=== PATIENT | male | born 1970 | race Asian ===

== ENCOUNTER 2016-07-17 10:06 | Outpatient (CLI) | payer OTHER | END 2016-07-17 23:59 | DX: Z00.00 Encounter for general adult medical examination without abnormal findings (principal); Z71.89 Other specified counseling; M54.2 Cervicalgia ==

== ENCOUNTER 2016-12-23 14:26 | Outpatient (CLI) | payer OTHER ==
[2016-12-23 13:32] LABS: ALBUMIN/GLOBULIN RATIO 1.8 (1.0-2.2); BILIRUBIN,TOTAL 0.6 mg/dL (0.2-1.0); BUN - BLOOD UREA NITROGEN 20 mg/dL (6-20); CALCIUM 8.9 mg/dL (8.5-10.3); CARBON DIOXIDE - CO2 25 mmol/L (21-32); CHLORIDE 109 mmol/L (101-111); CHOL/HDL RATIO 3.7 (<5.0); CHOLESTEROL 144 mg/dL; GFR - MDRD 80 (>89); GLUCOSE 105 mg/dL (70-100); HDL CHOLESTEROL 39 mg/dL; LDL/HDL RATIO 1.4 (<3.6); POTASSIUM 3.7 mmol/L (3.5-5.0); SODIUM 139 mmol/L (135-145); TOTAL PROTEIN 7.2 g/dL (6.7-8.2); TRIGLYCERIDES 244 mg/dL; VLDL CHOLESTEROL 49 mg/dL
== END 2016-12-23 14:27 | disposition home or self-care (01) ==
LOC: LAB.WCP 14:26
PROVIDERS: ATTEND Physician Assistant Medical
DX: E78.5 Hyperlipidemia, unspecified (principal)
CPT/HCPCS: 36415; 80053; 80061

== ENCOUNTER 2017-01-26 08:23 | Outpatient (CLI) | payer OTHER ==
[2017-01-26 13:13] LABS: ALBUMIN/GLOBULIN RATIO 1.7 (1.0-2.2); BILIRUBIN,TOTAL 0.5 mg/dL (0.2-1.0); CALCIUM 9.3 mg/dL (8.5-10.3); POTASSIUM 3.9 mmol/L (3.5-5.0); TOTAL PROTEIN 7.3 g/dL (6.7-8.2)
== END 2017-01-26 08:24 | disposition home or self-care (01) ==
LOC: LAB.WCP 08:23
PROVIDERS: ATTEND Physician Assistant Medical
DX: R74.8 Abnormal levels of other serum enzymes (principal)
CPT/HCPCS: 36415; 80053

== ENCOUNTER 2017-04-02 08:00 | Outpatient (CLI) | payer OTHER ==
[2017-04-02 12:57] LABS: ALBUMIN 4.7 g/dL (3.2-5.5); ALBUMIN/GLOBULIN RATIO 1.5 (1.0-2.2); ALKALINE PHOSPHATASE 77 IU/L (42-121); ALT ALANINE AMINOTRANSFERASE 36 IU/L (10-60); AST ASPARTATE AMINOTRANSFERASE 23 IU/L (10-42); BILIRUBIN,TOTAL 0.7 mg/dL (0.2-1.0); BUN - BLOOD UREA NITROGEN 21 mg/dL (6-20); CALCIUM 9.3 mg/dL (8.5-10.3); CARBON DIOXIDE - CO2 27 mmol/L (21-32); CHLORIDE 105 mmol/L (101-111); CHOL/HDL RATIO 3.8 (<5.0); CHOLESTEROL 169 mg/dL; CREATININE 1.1 mg/dL (0.6-1.2); GFR - MDRD 71 (>89); GLUCOSE 91 mg/dL (70-100); HDL CHOLESTEROL 45 mg/dL; LDL CHOLESTEROL,CALCULATED 77 mg/dL; LDL/HDL RATIO 1.7 (<3.6); SODIUM 138 mmol/L (135-145); TOTAL PROTEIN 7.9 g/dL (6.7-8.2); VLDL CHOLESTEROL 47 mg/dL
== END 2017-04-02 08:01 ==
LOC: LAB.WCP 08:00
PROVIDERS: ATTEND Physician Assistant Medical
DX: E78.5 Hyperlipidemia, unspecified (principal)
CPT/HCPCS: 36415; 80053; 80061

== ENCOUNTER 2017-12-02 08:00 | Outpatient (CLI) | payer OTHER ==
[2017-12-02 12:59] LABS: BASOPHILS % (AUTO) 0.4 %; EOSINOPHILS # (AUTO) 0.1 10^3/uL (0.0-0.7); EOSINOPHILS % (AUTO) 2.8 %; HGB - HEMOGLOBIN 14.8 g/dL (14.0-18.0); LYMPHOCYTES # (AUTO) 1.8 10^3/uL (1.5-3.5); LYMPHOCYTES % (AUTO) 35.2 %; MEAN CORPUSCULAR HEMOGLOBIN 29.5 pg (27.0-31.0); MEAN CORPUSCULAR HGB CONC 34.2 g/dL (32.0-36.0); MEAN CORPUSCULAR VOLUME 86.2 fL (80.0-94.0); MEAN PLATELET VOLUME 7.7 fL (7.4-11.4); MONOCYTES # (AUTO) 0.4 10^3/uL (0.0-1.0); MONOCYTES % (AUTO) 8.1 %; NEUTROPHILS # (AUTO) 2.7 10^3/uL (1.5-6.6); NEUTROPHILS % (AUTO) 53.5 %; PLT - PLATELET COUNT 226 10^3/uL (130-450); RED BLOOD COUNT 5.01 10^6/uL (4.70-6.10); RED CELL DISTRIBUTION WIDTH 13.4 % (12.0-15.0)
[2017-12-02 14:03] LABS: ALBUMIN 4.5 g/dL (3.2-5.5); ALBUMIN/GLOBULIN RATIO 1.5 (1.0-2.2); ALKALINE PHOSPHATASE 84 IU/L (42-121); ALT ALANINE AMINOTRANSFERASE 66 IU/L (10-60); AST ASPARTATE AMINOTRANSFERASE 28 IU/L (10-42); BILIRUBIN,TOTAL 1.1 mg/dL (0.2-1.0); BUN - BLOOD UREA NITROGEN 18 mg/dL (6-20); CALCIUM 9.1 mg/dL (8.5-10.3); CARBON DIOXIDE - CO2 26 mmol/L (21-32); CHLORIDE 105 mmol/L (101-111); CHOL/HDL RATIO 7.5 (<5.0); CHOLESTEROL 294 mg/dL; CREATININE 0.9 mg/dL (0.6-1.2); GFR - MDRD 90 (>89); GLUCOSE 95 mg/dL (70-100); HDL CHOLESTEROL 39 mg/dL; SODIUM 139 mmol/L (135-145); TOTAL PROTEIN 7.5 g/dL (6.7-8.2)
[2017-12-02 15:24] LABS: LDL CHOLESTEROL,DIRECT 120 mg/dL; LDLD/HDL RATIO 3.1 (<3.6)
== END 2017-12-02 08:01 | disposition home or self-care (01) ==
LOC: LAB.WCP 08:00
PROVIDERS: ATTEND Physician Assistant Medical
DX: Z00.00 Encounter for general adult medical examination without abnormal findings (principal); E78.5 Hyperlipidemia, unspecified
CPT/HCPCS: 36415; 80053; 80061; 83721; 85025

== ENCOUNTER 2018-04-06 07:23 | Outpatient (CLI) | payer OTHER ==
[2018-04-06 12:34] LABS: BASOPHILS % (AUTO) 0.4 %; EOSINOPHILS # (AUTO) 0.2 10^3/uL (0.0-0.7); EOSINOPHILS % (AUTO) 3.4 %; HGB - HEMOGLOBIN 14.1 g/dL (14.0-18.0); LYMPHOCYTES # (AUTO) 1.6 10^3/uL (1.5-3.5); LYMPHOCYTES % (AUTO) 33.3 %; MEAN CORPUSCULAR HGB CONC 33.5 g/dL (32.0-36.0); MEAN CORPUSCULAR VOLUME 86.8 fL (80.0-94.0); MEAN PLATELET VOLUME 7.9 fL (7.4-11.4); MONOCYTES # (AUTO) 0.4 10^3/uL (0.0-1.0); MONOCYTES % (AUTO) 7.3 %; NEUTROPHILS # (AUTO) 2.7 10^3/uL (1.5-6.6); NEUTROPHILS % (AUTO) 55.6 %; PLT - PLATELET COUNT 259 10^3/uL (130-450); RED BLOOD COUNT 4.84 10^6/uL (4.70-6.10); RED CELL DISTRIBUTION WIDTH 13.5 % (12.0-15.0); WHITE BLOOD COUNT 4.8 x10^3/uL (4.8-10.8)
[2018-04-06 13:16] LABS: ALBUMIN 4.6 g/dL (3.2-5.5); ALBUMIN/GLOBULIN RATIO 1.8 (1.0-2.2); ALKALINE PHOSPHATASE 45 IU/L (42-121); ALT ALANINE AMINOTRANSFERASE 36 IU/L (10-60); AST ASPARTATE AMINOTRANSFERASE 25 IU/L (10-42); BILIRUBIN,TOTAL 0.6 mg/dL (0.2-1.0); BUN - BLOOD UREA NITROGEN 25 mg/dL (6-20); CALCIUM 9.2 mg/dL (8.5-10.3); CARBON DIOXIDE - CO2 24 mmol/L (21-32); CHLORIDE 109 mmol/L (101-111); CHOL/HDL RATIO 2.8 (<5.0); CHOLESTEROL 137 mg/dL; GFR - MDRD 79 (>89); GLUCOSE 93 mg/dL (70-100); HDL CHOLESTEROL 49 mg/dL; LDL CHOLESTEROL,CALCULATED 54 mg/dL; LDL/HDL RATIO 1.1 (<3.6); SODIUM 140 mmol/L (135-145); TOTAL PROTEIN 7.2 g/dL (6.7-8.2); VLDL CHOLESTEROL 34 mg/dL
== END 2018-04-06 23:59 | disposition home or self-care (01) ==
LOC: LAB.WCP 07:23
PROVIDERS: ATTEND Physician Assistant Medical
DX: E78.5 Hyperlipidemia, unspecified (principal); Z00.00 Encounter for general adult medical examination without abnormal findings
CPT/HCPCS: 36415; 80053; 80061; 83721; 84153; 84443; 85025

== ENCOUNTER 2018-08-23 07:23 | Outpatient (CLI) | payer OTHER ==
[2018-08-23 12:33] LABS: CHOL/HDL RATIO 6.6 (<5.0); CHOLESTEROL 251 mg/dL; HDL CHOLESTEROL 38 mg/dL
[2018-08-23 13:09] LABS: LDL CHOLESTEROL,DIRECT 84 mg/dL; LDLD/HDL RATIO 2.2 (<3.6)
== END 2018-08-23 07:24 | disposition home or self-care (01) ==
LOC: LAB.WCP 07:23
PROVIDERS: ATTEND Physician Assistant Medical
DX: E78.5 Hyperlipidemia, unspecified (principal)
CPT/HCPCS: 36415; 80061; 83721

== ENCOUNTER 2018-10-11 07:35 | Outpatient (CLI) | payer OTHER ==
[2018-10-11 13:19] LABS: ALBUMIN 4.9 g/dL (3.2-5.5); ALBUMIN/GLOBULIN RATIO 1.8 (1.0-2.2); ALKALINE PHOSPHATASE 46 IU/L (42-121); ALT ALANINE AMINOTRANSFERASE 30 IU/L (10-60); AST ASPARTATE AMINOTRANSFERASE 27 IU/L (10-42); BILIRUBIN,TOTAL 0.9 mg/dL (0.2-1.0); BUN - BLOOD UREA NITROGEN 16 mg/dL (6-20); CALCIUM 9.4 mg/dL (8.5-10.3); CARBON DIOXIDE - CO2 24 mmol/L (21-32); CHLORIDE 104 mmol/L (101-111); CHOL/HDL RATIO 2.9 (<5.0); CHOLESTEROL 115 mg/dL; CREATININE 0.9 mg/dL (0.6-1.2); GFR - MDRD 89 (>89); GLUCOSE 104 mg/dL (70-100); HDL CHOLESTEROL 40 mg/dL; LDL CHOLESTEROL,CALCULATED 40 mg/dL; SODIUM 141 mmol/L (135-145); TOTAL PROTEIN 7.7 g/dL (6.7-8.2); VLDL CHOLESTEROL 35 mg/dL
== END 2018-10-11 07:36 | disposition home or self-care (01) ==
LOC: LAB.WCP 07:35
PROVIDERS: ATTEND Physician Assistant Medical
DX: E78.5 Hyperlipidemia, unspecified (principal)
CPT/HCPCS: 36415; 80053; 80061; 83721

== ENCOUNTER 2019-01-12 07:00 | Outpatient (CLI) | payer OTHER ==
[2019-01-12 12:32] LABS: BASOPHILS # (AUTO) 0.1 10^3/uL (0.0-0.1); BASOPHILS % (AUTO) 1.2 %; EOSINOPHILS # (AUTO) 0.2 10^3/uL (0.0-0.7); EOSINOPHILS % (AUTO) 3.8 %; HGB - HEMOGLOBIN 13.6 g/dL (14.0-18.0); LYMPHOCYTES # (AUTO) 1.8 10^3/uL (1.5-3.5); MEAN CORPUSCULAR HEMOGLOBIN 28.2 pg (27.0-31.0); MEAN CORPUSCULAR HGB CONC 31.9 g/dL (32.0-36.0); MEAN CORPUSCULAR VOLUME 88.4 fL (80.0-94.0); MEAN PLATELET VOLUME 9.5 fL (7.4-11.4); MONOCYTES # (AUTO) 0.4 10^3/uL (0.0-1.0); MONOCYTES % (AUTO) 8.2 %; NEUTROPHILS # (AUTO) 2.6 10^3/uL (1.5-6.6); NEUTROPHILS % (AUTO) 51.4 %; PLT - PLATELET COUNT 361 10^3/uL (130-450); RED BLOOD COUNT 4.82 10^6/uL (4.70-6.10); RED CELL DISTRIBUTION WIDTH 12.2 % (12.0-15.0)
== END 2019-01-12 23:59 | disposition home or self-care (01) ==
LOC: LAB.WCP 07:00
PROVIDERS: ATTEND Nurse Practitioner Gerontology
DX: M10.9 Gout, unspecified (principal); L03.90 Cellulitis, unspecified
CPT/HCPCS: 36415; 84550; 85025

== ENCOUNTER 2019-05-09 07:23 | Outpatient (CLI) | payer OTHER ==
[2019-05-09 12:24] LABS: ALBUMIN 4.7 g/dL (3.2-5.5); ALBUMIN/GLOBULIN RATIO 1.6 (1.0-2.2); ALKALINE PHOSPHATASE 54 IU/L (42-121); ALT ALANINE AMINOTRANSFERASE 50 IU/L (10-60); AST ASPARTATE AMINOTRANSFERASE 30 IU/L (10-42); BILIRUBIN,TOTAL 0.7 mg/dL (0.2-1.0); BUN - BLOOD UREA NITROGEN 19 mg/dL (6-20); CALCIUM 9.2 mg/dL (8.5-10.3); CARBON DIOXIDE - CO2 25 mmol/L (21-32); CHLORIDE 107 mmol/L (101-111); CHOL/HDL RATIO 4.1 (<5.0); CHOLESTEROL 197 mg/dL; CREATININE 1.1 mg/dL (0.6-1.2); GFR - MDRD 71 (>89); GLUCOSE 99 mg/dL (70-100); HDL CHOLESTEROL 48 mg/dL; LDL CHOLESTEROL,CALCULATED 106 mg/dL; LDL/HDL RATIO 2.2 (<3.6); SODIUM 140 mmol/L (135-145); TOTAL PROTEIN 7.6 g/dL (6.7-8.2); VLDL CHOLESTEROL 43 mg/dL
== END 2019-05-09 07:24 | disposition home or self-care (01) ==
LOC: LAB.WCP 07:23
PROVIDERS: ATTEND Physician Assistant Medical
DX: E78.5 Hyperlipidemia, unspecified (principal); M10.9 Gout, unspecified; Z12.5 Encounter for screening for malignant neoplasm of prostate
CPT/HCPCS: 36415; 80053; 80061; 83721; 84153; 84443

== ENCOUNTER 2019-07-29 15:24 | Outpatient (CLI) | payer OTHER | END 2019-07-29 15:25 | disposition home or self-care (01) | LOC: LAB 15:24 | PROVIDERS: ATTEND Surgery | DX: Z01.812 Encounter for preprocedural laboratory examination (principal); K60.3 Anal fistula | CPT/HCPCS: 81599 ==

== ENCOUNTER 2019-08-01 08:00 | Outpatient (CLI) | payer OTHER ==
[2019-08-01 15:39] LABS: CHOL/HDL RATIO 11.8 (<5.0); CHOLESTEROL 329 mg/dL; HDL CHOLESTEROL 28 mg/dL
[2019-08-01 16:10] LABS: LDL CHOLESTEROL,DIRECT 56 mg/dL
== END 2019-08-01 23:59 | disposition home or self-care (01) ==
LOC: LAB.WCP 08:00
PROVIDERS: ATTEND Physician Assistant Medical
DX: E78.5 Hyperlipidemia, unspecified (principal)
CPT/HCPCS: 36415; 80061; 83721

== ENCOUNTER 2019-08-02 08:10 | Day surgery (SDC) | payer OTHER ==
[~2019-08-02 08:10] MED LIST: LIDOCAINE 1%-EPI 1:100000 20 ML MDV ONE; LIDOCAINE OINTMENT 5% 35.44 GM TUBE ONE
[2019-08-02] MEDS ORDERED: fentaNYL 100 MCG/2 ML VIAL IVP ONE (08:11)
[2019-08-02] MEDS ORDERED: MIDAZOLAM 2 MG/2 ML VIAL IVP ONE (08:11)
[2019-08-02] MEDS ORDERED: KETAMINE 500 MG/10 ML VIAL IVP ONE (08:11)
[2019-08-02] MEDS ORDERED: PROPOFOL 200 MG/20 ML VIAL IVP ONE (08:11)
[2019-08-02] MEDS ORDERED: METHYLENE BLUE 0.5% 50 MG/10 ML AMPULE ONE (08:13)
[2019-08-02] MEDS ORDERED: metroNIDAZOLE 500 MG/100 ML 500 MG/100 ML BAG ONE (08:20)
[2019-08-02] MEDS ORDERED: LACTATED RINGERS 1,000 ML IV ONE (08:25)
--- NOTE | 2019-08-02 08:52 | ANESTHESIA ---
Pre-Anesthesia VS, & Labs - Diagnosis anal fistula - Procedure EUA fistulotomy Vital Signs: Temp Pulse Resp BP Pulse Ox 36.4 C L 87 16 141/96 H 100 08/02/19 08:09 08/02/19 08:09 08/02/19 08:09 08/02/19 08:09 08/02/19 08:09 Height 5 ft 2 in Weight (kg) 74 kg - NPO >8 hours Home Medications and Allergies Home Medications: Ambulatory Orders Cyclobenzaprine [Flexeril] 10 mg PO DAILY 08/01/19 Cyclobenzaprine [Flexeril] 10 mg PO DAILY 08/01/19 Allergies/Adverse Reactions: Allergies Allergy/AdvReac Type Severity Reaction Status Date / Time No Known Drug Allergies Allergy Verified 08/01/19 09:50 Anes History & Medical History - Anesthetic History Anesthesia Complications: reports: No previous complications Family history of Anesthesia Complications: Denies Family history of Malignant Hyperthermia: Denies - Medical History Cardiovascular: reports: High cholesterol Pulmonary: reports: None Gastrointestinal: reports: None, Other (hepatitis A "20 years ago") Urinary: reports: None Neuro: reports: None Musculoskeletal: reports: None, Other (right ankle discomfort" started a few days ago) Endocrine/Autoimmune: reports: None Blood Disorders: reports: None Skin: reports: None Smoking Status: Never smoker Psychosocial: reports: No issues indicated - Surgical History General: Colonoscopy, Other Exam General: Alert, Oriented x3, Cooperative, No acute distress Dental: WNL Mouth Openin Fingerbreadth Neck Mobility: Normal Mallampati classification: II Thyromental Distance: 4-6 cm Respiratory: Lungs clear, Normal breath sounds, No respiratory distress, No accessory muscle use Cardiovascular: Regular rate, Normal S1, Normal S2, No murmurs Abdomen: Normal bowel sounds, Soft, No tenderness, No hepatospenomegaly, No masses Extremities: No clubbing, No cyanosis, No edema, Normal pulses, No tenderness/swelling Neurological: Normal gait, Normal speech, Strength at 5/5 X4 ext, Normal tone, Sensation intact, Cranial nerves 3-12 NL, Reflexes 2+ Mental/Cognitive Status: Alert/Oriented X3, Normal for patient Cognitive Status: Within normal limits Plan Anesthesia Type: General Consent for Procedure(s) Verified and Reviewed: Yes Code Status: Attempt Resuscitation ASA classification: 1-Healthy patient Is this case an emergency?: No
[2019-08-02] MEDS ORDERED: BUPIVACAINE 0.25% PF 30 ML VIAL ONE (09:48)
[2019-08-02] MEDS ORDERED: BUPIVACAINE 0.25% PF 30 ML VIAL SUBQ ONE ×2 (09:51)
[2019-08-02] MEDS ORDERED: LIDOCAINE 1%-EPI 1:100000 20 ML MDV SUBQ ONE ×2 (09:51)
[2019-08-02] MEDS ORDERED: METHYLENE BLUE 0.5% 50 MG/10 ML AMPULE IR ONE (09:52)
[2019-08-02] MEDS ORDERED: ACETAMINOPHEN 325 MG TABLET PO PRN (10:12)
[2019-08-02] MEDS ORDERED: ONDANSETRON 4 MG/2 ML VIAL IVP PRN (10:12)
[2019-08-02] MEDS ORDERED: IBUPROFEN 600 MG TABLET PO PRN (10:12)
[2019-08-02] MEDS ORDERED: oxyCODONE 5 MG TABLET PO PRN (10:12)
[2019-08-02 10:36] VITALS: BP 119/85
--- NOTE | 2019-08-02 11:20 | OPERATIVE REPORT ---
DATE OF SERVICE: 08/02/2019 Physician: Alex Tate MD PREOPERATIVE DIAGNOSIS: Perianal fistula, likely superficial. POSTOPERATIVE DIAGNOSIS: Perianal fistula, superficial. PROCEDURE PERFORMED: Examination under anesthesia and fistulotomy. ANESTHESIA: Monitored anesthesia care, IV sedation, local anesthesia. COMPLICATIONS: None. ESTIMATED BLOOD LOSS: None. DRAINS: None. FINDINGS: A superficial perianal fistula 5 o'clock position. May have initially started as a fissur e. INDICATIONS FOR PROCEDURE: Patient is a healthy 49-year-old gentleman who developed perianal pain, s welling a few months ago. He has improved; however, it continues to have periodic drainage. On phys ical examination, he had the appearance of a superficial fissure at 5 o'clock. Examination under ane sthesia, possible fistulotomy was recommended. Risks discussed, alternatives were discussed. All qu estions answered and consent obtained. PROCEDURE: Patient was properly identified, brought to the operating room and placed in supine posit ion. Monitored anesthesia care was given. He was repositioned in [facility]. He was prepp ed and draped in a sterile fashion and given preoperative antibiotics. The fistula tract was injecte d with methylene blue. Again, the tract was at 5 o'clock position and was very superficial, possibly starting initially with a fissure that later developed into an abscess. Local anesthetic was given. A large lacrimal probe was then placed through the fistula tract. The fistula tract was then opene d. The tract was opened down to musculature; however, it again did not course through the muscle. C hronic granulation tissue was cauterized. Hemostasis was assured. Tolerated the procedure well, was awakened and brought to recovery in good condition. TD: 08/02/2019 10:47
== END 2019-08-02 08:11 | disposition home or self-care (01) ==
LOC: SDS 08:10
PROVIDERS: ATTEND Surgery
DX: K61.0 Anal abscess (principal)
CPT/HCPCS: 46270; J7120

== ENCOUNTER 2019-11-10 07:24 | Outpatient (CLI) | payer OTHER ==
[2019-11-10 12:20] LABS: ALBUMIN 4.6 g/dL (3.2-5.5); ALBUMIN/GLOBULIN RATIO 1.6 (1.0-2.2); ALKALINE PHOSPHATASE 97 IU/L (42-121); ALT ALANINE AMINOTRANSFERASE 113 IU/L (10-60); AST ASPARTATE AMINOTRANSFERASE 38 IU/L (10-42); BILIRUBIN,TOTAL 1.1 mg/dL (0.2-1.0); BUN - BLOOD UREA NITROGEN 15 mg/dL (6-20); CALCIUM 9.2 mg/dL (8.5-10.3); CARBON DIOXIDE - CO2 25 mmol/L (21-32); CHLORIDE 106 mmol/L (101-111); CHOL/HDL RATIO 2.5 (<5.0); CHOLESTEROL 123 mg/dL; CREATININE 0.9 mg/dL (0.6-1.2); GLUCOSE 96 mg/dL (70-100); HDL CHOLESTEROL 49 mg/dL; LDL CHOLESTEROL,CALCULATED 37 mg/dL; LDL/HDL RATIO 0.8 (<3.6); SODIUM 139 mmol/L (135-145); TOTAL PROTEIN 7.5 g/dL (6.7-8.2); VLDL CHOLESTEROL 37 mg/dL
== END 2019-11-10 23:59 | disposition home or self-care (01) ==
LOC: LAB.WCP 07:24
PROVIDERS: ATTEND Physician Assistant Medical
DX: E78.5 Hyperlipidemia, unspecified (principal)
CPT/HCPCS: 36415; 80053; 80061; 83721

== ENCOUNTER 2020-01-13 09:24 | Outpatient (CLI) | payer OTHER ==
--- NOTE | 2020-01-13 10:15 | XRAY Report ---
PROCEDURE: Foot 3 View LT INDICATIONS: PLANTAR FASCITIS TECHNIQUE: 3 views of the foot were acquired. COMPARISON: None. FINDINGS: Bones: No acute fractures or dislocations. No suspicious bony lesions. A small posterior calcaneal spur is present. No plantar calcaneal spur is seen. Soft tissues: No suspicious soft tissue calcification is seen. IMPRESSION: No acute osseous abnormality. If symptoms persist with conservative management, further evaluation wi th CT or MRI may be obtained. Reviewed by: Bernardo Norman MD on 01/13/2020 10:14 AM PDT Approved by: Bernardo Norman MD on 01/13/2020 10:14 AM PDT Station ID: [id number]
== END 2020-01-13 09:25 | disposition home or self-care (01) ==
LOC: DI 09:24
PROVIDERS: ATTEND Family Medicine
DX: M72.2 Plantar fascial fibromatosis (principal)

== ENCOUNTER 2020-02-07 08:00 | Outpatient (CLI) | payer OTHER ==
[2020-02-07 12:26] LABS: ALBUMIN 4.4 g/dL (3.2-5.5); ALBUMIN/GLOBULIN RATIO 1.4 (1.0-2.2); ALKALINE PHOSPHATASE 88 IU/L (42-121); ALT ALANINE AMINOTRANSFERASE 56 IU/L (10-60); AST ASPARTATE AMINOTRANSFERASE 31 IU/L (10-42); BUN - BLOOD UREA NITROGEN 17 mg/dL (6-20); CALCIUM 9.3 mg/dL (8.5-10.3); CARBON DIOXIDE - CO2 27 mmol/L (21-32); CHLORIDE 105 mmol/L (101-111); CHOL/HDL RATIO 2.4 (<5.0); CHOLESTEROL 119 mg/dL; GLUCOSE 103 mg/dL (70-100); HDL CHOLESTEROL 49 mg/dL; LDL CHOLESTEROL,CALCULATED 42 mg/dL; LDL/HDL RATIO 0.9 (<3.6); SODIUM 140 mmol/L (135-145); TOTAL PROTEIN 7.5 g/dL (6.7-8.2); VLDL CHOLESTEROL 28 mg/dL
== END 2020-02-07 23:59 | disposition home or self-care (01) ==
LOC: LAB.WCP 08:00
PROVIDERS: ATTEND Physician Assistant Medical
DX: E78.5 Hyperlipidemia, unspecified (principal); R74.8 Abnormal levels of other serum enzymes
CPT/HCPCS: 36415; 80053; 80061; 83721

== ENCOUNTER 2020-08-15 08:00 | Outpatient (CLI) | payer OTHER ==
[2020-08-15 12:21] LABS: BASOPHILS % (AUTO) 0.5 %; EOSINOPHILS # (AUTO) 0.2 10^3/uL (0.0-0.7); EOSINOPHILS % (AUTO) 2.5 %; HCT - HEMATOCRIT 43.7 % (42.0-52.0); HGB - HEMOGLOBIN 14.3 g/dL (14.0-18.0); LYMPHOCYTES # (AUTO) 1.8 10^3/uL (1.5-3.5); LYMPHOCYTES % (AUTO) 29.6 %; MEAN CORPUSCULAR HEMOGLOBIN 29.1 pg (27.0-31.0); MEAN CORPUSCULAR HGB CONC 32.7 g/dL (32.0-36.0); MEAN PLATELET VOLUME 9.4 fL (7.4-11.4); MONOCYTES # (AUTO) 0.4 10^3/uL (0.0-1.0); MONOCYTES % (AUTO) 6.6 %; NEUTROPHILS # (AUTO) 3.6 10^3/uL (1.5-6.6); NEUTROPHILS % (AUTO) 60.5 %; PLT - PLATELET COUNT 246 10^3/uL (130-450); RED BLOOD COUNT 4.91 10^6/uL (4.70-6.10); RED CELL DISTRIBUTION WIDTH 12.3 % (12.0-15.0); WHITE BLOOD COUNT 5.9 x10^3/uL (4.8-10.8)
[2020-08-15 12:40] LABS: ALBUMIN 4.8 g/dL (3.2-5.5); ALBUMIN/GLOBULIN RATIO 1.7 (1.0-2.2); ALKALINE PHOSPHATASE 83 IU/L (42-121); ALT ALANINE AMINOTRANSFERASE 81 IU/L (10-60); AST ASPARTATE AMINOTRANSFERASE 34 IU/L (10-42); BILIRUBIN,TOTAL 0.7 mg/dL (0.2-1.0); BUN - BLOOD UREA NITROGEN 18 mg/dL (6-20); CALCIUM 9.4 mg/dL (8.5-10.3); CARBON DIOXIDE - CO2 26 mmol/L (21-32); CHLORIDE 106 mmol/L (101-111); CHOL/HDL RATIO 3.9 (<5.0); CHOLESTEROL 172 mg/dL; CREATININE 0.9 mg/dL (0.6-1.2); GFR - MDRD 89 (>89); GLUCOSE 108 mg/dL (70-100); HDL CHOLESTEROL 44 mg/dL; LDL CHOLESTEROL,CALCULATED 63 mg/dL; LDL/HDL RATIO 1.4 (<3.6); POTASSIUM 3.9 mmol/L (3.5-5.0); SODIUM 141 mmol/L (135-145); TOTAL PROTEIN 7.6 g/dL (6.7-8.2); TRIGLYCERIDES 324 mg/dL; VLDL CHOLESTEROL 65 mg/dL
== END 2020-08-15 23:59 | disposition home or self-care (01) ==
LOC: LAB.WCP 08:00
PROVIDERS: ATTEND Family Medicine
DX: E78.5 Hyperlipidemia, unspecified (principal); R74.8 Abnormal levels of other serum enzymes; Z12.5 Encounter for screening for malignant neoplasm of prostate; M10.9 Gout, unspecified; K62.5 Hemorrhage of anus and rectum
CPT/HCPCS: 36415; 80053; 80061; 83721; 84153; 84550; 85025

== ENCOUNTER 2021-01-17 07:04 | Outpatient (CLI) | payer OTHER ==
[2021-01-17 13:08] LABS: ALBUMIN 4.8 g/dL (3.2-5.5); ALBUMIN/GLOBULIN RATIO 1.8 (1.0-2.2); ALKALINE PHOSPHATASE 105 IU/L (42-121); ALT ALANINE AMINOTRANSFERASE 91 IU/L (10-60); AST ASPARTATE AMINOTRANSFERASE 34 IU/L (10-42); BILIRUBIN,TOTAL 1.3 mg/dL (0.2-1.0); BUN - BLOOD UREA NITROGEN 18 mg/dL (6-20); CALCIUM 9.2 mg/dL (8.5-10.3); CARBON DIOXIDE - CO2 24 mmol/L (21-32); CHLORIDE 106 mmol/L (101-111); CHOL/HDL RATIO 3.2 (<5.0); CHOLESTEROL 137 mg/dL; CREATININE 0.9 mg/dL (0.6-1.2); GFR - MDRD 89 (>89); GLUCOSE 101 mg/dL (70-100); HDL CHOLESTEROL 43 mg/dL; LDL CHOLESTEROL,CALCULATED 41 mg/dL; POTASSIUM 3.7 mmol/L (3.5-5.0); SODIUM 142 mmol/L (135-145); TOTAL PROTEIN 7.5 g/dL (6.7-8.2); TRIGLYCERIDES 265 mg/dL; VLDL CHOLESTEROL 53 mg/dL
[2021-01-18 10:06] LABS: HEPATITIS B SURFACE ANTIGEN NON-REACTIVE (NON-REACTIVE); HEPATITIS C ANTIBODY NON-REACTIVE (NON-REACTIVE)
== END 2021-01-17 23:59 | disposition home or self-care (01) ==
LOC: LAB.WCP 07:04
PROVIDERS: ATTEND Physician Assistant Medical
DX: E78.5 Hyperlipidemia, unspecified (principal); R74.8 Abnormal levels of other serum enzymes
CPT/HCPCS: 36415; 80053; 80061; 83721; 86317; 86704; 86709; 86803; 87340

== ENCOUNTER 2021-04-11 08:53 | Outpatient (CLI) | payer OTHER ==
[2021-04-11 12:19] LABS: BASOPHILS % (AUTO) 0.6 %; EOSINOPHILS # (AUTO) 0.2 10^3/uL (0.0-0.7); EOSINOPHILS % (AUTO) 3.5 %; HGB - HEMOGLOBIN 14.1 g/dL (14.0-18.0); LYMPHOCYTES # (AUTO) 1.9 10^3/uL (1.5-3.5); LYMPHOCYTES % (AUTO) 37.6 %; MEAN CORPUSCULAR HEMOGLOBIN 28.8 pg (27.0-31.0); MEAN CORPUSCULAR HGB CONC 32.8 g/dL (32.0-36.0); MEAN CORPUSCULAR VOLUME 87.8 fL (80.0-94.0); MEAN PLATELET VOLUME 9.7 fL (7.4-11.4); MONOCYTES # (AUTO) 0.3 10^3/uL (0.0-1.0); MONOCYTES % (AUTO) 5.7 %; NEUTROPHILS # (AUTO) 2.6 10^3/uL (1.5-6.6); NEUTROPHILS % (AUTO) 52.2 %; PLT - PLATELET COUNT 217 10^3/uL (130-450); RED CELL DISTRIBUTION WIDTH 12.6 % (12.0-15.0); WHITE BLOOD COUNT 4.9 x10^3/uL (4.8-10.8)
[2021-04-11 12:34] LABS: CRP - C-REACTIVE PROTEIN 1.6 mg/dL (0-1.0); URIC ACID 6.6 mg/dL (2.6-7.2)
[2021-04-11 12:49] LABS: RHEUMATOID FACTOR NEGATIVE (Negative)
[2021-04-13 10:25] LABS: ANA SCREEN NEGATIVE (NEGATIVE)
== END 2021-04-11 08:54 | disposition home or self-care (01) ==
LOC: LAB.N 08:53
PROVIDERS: ATTEND Physician Assistant Medical
DX: M19.049 Primary osteoarthritis, unspecified hand (principal)
CPT/HCPCS: 36415; 84550; 85025; 85651; 86038; 86140; 86225; 86430

== ENCOUNTER 2021-04-11 09:00 | Outpatient (CLI) | payer OTHER ==
--- NOTE | 2021-04-11 17:30 | XRAY Report ---
PROCEDURE: Hand 3 View BILAT INDICATIONS: ARTHRITIS TECHNIQUE: 3 views of each hand acquired. COMPARISON: None. FINDINGS: Bones: No fractures or dislocations. There is severe narrowing of the left second distal interphalan geal joint with subchondral sclerosis and cystic change as well as osteophytosis. There is juxta-argenis cular lucency which may represent a small erosion. There is mild narrowing of the remaining interphal angeal joints Soft tissues: No suspicious soft tissue calcifications. IMPRESSION: 1. Degenerative changes of the second distal interphalangeal joint with severe joint space narrowing and suspected bony erosion. The findings are nonspecific but suggestive of erosive osteoarthritis. Reviewed by: Samir Stallworth MD on 04/11/2021 5:29 PM PST Approved by: Samir Stallworth MD on 04/11/2021 5:29 PM PST Station ID: [id number]
== END 2021-04-11 09:01 | disposition home or self-care (01) ==
LOC: DI.N 09:00
PROVIDERS: ATTEND Physician Assistant Medical
DX: M19.042 Primary osteoarthritis, left hand (principal); M19.041 Primary osteoarthritis, right hand; R93.6 Abnormal findings on diagnostic imaging of limbs
CPT/HCPCS: 36415; 84550; 85025; 85651; 86038; 86140; 86225; 86430

== ENCOUNTER 2021-08-14 08:05 | Outpatient (CLI) | payer OTHER ==
[2021-08-14 11:51] LABS: BASOPHILS % (AUTO) 0.4 %; EOSINOPHILS # (AUTO) 0.2 10^3/uL (0.0-0.7); EOSINOPHILS % (AUTO) 3.2 %; HCT - HEMATOCRIT 42.9 % (42.0-52.0); HGB - HEMOGLOBIN 14.2 g/dL (14.0-18.0); LYMPHOCYTES # (AUTO) 2.2 10^3/uL (1.5-3.5); LYMPHOCYTES % (AUTO) 38.8 %; MEAN CORPUSCULAR HEMOGLOBIN 28.8 pg (27.0-31.0); MEAN CORPUSCULAR HGB CONC 33.1 g/dL (32.0-36.0); MEAN PLATELET VOLUME 9.6 fL (7.4-11.4); MONOCYTES # (AUTO) 0.4 10^3/uL (0.0-1.0); MONOCYTES % (AUTO) 6.5 %; NEUTROPHILS # (AUTO) 2.9 10^3/uL (1.5-6.6); NEUTROPHILS % (AUTO) 50.7 %; PLT - PLATELET COUNT 208 10^3/uL (130-450); RED BLOOD COUNT 4.93 10^6/uL (4.70-6.10); RED CELL DISTRIBUTION WIDTH 12.6 % (12.0-15.0); WHITE BLOOD COUNT 5.7 x10^3/uL (4.8-10.8)
[2021-08-14 12:04] LABS: ALBUMIN 4.4 g/dL (3.2-5.5); ALBUMIN/GLOBULIN RATIO 1.5 (1.0-2.2); ALKALINE PHOSPHATASE 78 IU/L (42-121); ALT ALANINE AMINOTRANSFERASE 67 IU/L (10-60); AST ASPARTATE AMINOTRANSFERASE 31 IU/L (10-42); BILIRUBIN,TOTAL 0.4 mg/dL (0.2-1.0); BUN - BLOOD UREA NITROGEN 19 mg/dL (6-20); CALCIUM 9.4 mg/dL (8.5-10.3); CARBON DIOXIDE - CO2 26 mmol/L (21-32); CHLORIDE 108 mmol/L (101-111); CHOL/HDL RATIO 3.8 (<5.0); CHOLESTEROL 153 mg/dL; GFR - MDRD 78 (>89); GLUCOSE 117 mg/dL (70-100); HDL CHOLESTEROL 40 mg/dL; LDL CHOLESTEROL,CALCULATED 69 mg/dL; LDL/HDL RATIO 1.7 (<3.6); POTASSIUM 4.2 mmol/L (3.5-5.0); SODIUM 141 mmol/L (135-145); TOTAL PROTEIN 7.3 g/dL (6.7-8.2); TRIGLYCERIDES 221 mg/dL; VLDL CHOLESTEROL 44 mg/dL
[2021-08-14 12:10] LABS: THYROID STIMULATING HORMONE 0.31 uIU/mL (0.34-5.60)
[2021-08-14 12:44] LABS: FREE T4 (FREE THYROXINE) 0.81 ng/dL (0.58-1.64)
== END 2021-08-14 08:06 | disposition home or self-care (01) ==
LOC: LAB.N 08:05
PROVIDERS: ATTEND Physician Assistant Medical
DX: E78.5 Hyperlipidemia, unspecified (principal); R74.8 Abnormal levels of other serum enzymes; Z12.5 Encounter for screening for malignant neoplasm of prostate; R73.9 Hyperglycemia, unspecified
CPT/HCPCS: 36415; 80053; 80061; 83721; 84153; 84439; 84443; 85025

== ENCOUNTER 2021-09-27 15:09 | Outpatient (CLI) | payer OTHER ==
[2021-09-27 15:34] VITALS: BP 137/87
== END 2021-09-27 15:10 | disposition home or self-care (01) ==
LOC: MAC.MOP 15:09
PROVIDERS: ATTEND Internal Medicine
DX: R00.2 Palpitations (principal)
CPT/HCPCS: 93242

== ENCOUNTER 2021-10-15 10:30 | Outpatient (CLI) | payer OTHER | END 2021-10-15 10:31 | disposition home or self-care (01) | LOC: MAC.MOP 10:30 | PROVIDERS: ATTEND Internal Medicine | DX: I49.1 Atrial premature depolarization (principal); I49.3 Ventricular premature depolarization | CPT/HCPCS: 93244 ==

== ENCOUNTER 2021-12-09 07:54 | Outpatient (CLI) | payer OTHER ==
[2021-12-09 08:41] LABS: ALBUMIN 4.7 g/dL (3.2-5.5); ALBUMIN/GLOBULIN RATIO 1.6 (1.0-2.2); ALKALINE PHOSPHATASE 86 IU/L (42-121); ALT ALANINE AMINOTRANSFERASE 55 IU/L (10-60); AST ASPARTATE AMINOTRANSFERASE 28 IU/L (10-42); BILIRUBIN,TOTAL 1.1 mg/dL (0.2-1.0); BUN - BLOOD UREA NITROGEN 22 mg/dL (6-20); CALCIUM 9.6 mg/dL (8.5-10.3); CARBON DIOXIDE - CO2 28 mmol/L (21-32); CHLORIDE 104 mmol/L (101-111); CHOL/HDL RATIO 3.7 (<5.0); CHOLESTEROL 166 mg/dL; CREATININE 1.1 mg/dL (0.6-1.2); GFR - MDRD 70 (>89); GLUCOSE 110 mg/dL (70-100); HDL CHOLESTEROL 45 mg/dL; LDL CHOLESTEROL,CALCULATED 75 mg/dL; LDL/HDL RATIO 1.7 (<3.6); POTASSIUM 4.4 mmol/L (3.5-5.0); SODIUM 141 mmol/L (135-145); TOTAL PROTEIN 7.7 g/dL (6.7-8.2); TRIGLYCERIDES 229 mg/dL; URIC ACID 7.6 mg/dL (2.6-7.2); VLDL CHOLESTEROL 46 mg/dL
[2021-12-09 08:48] LABS: THYROID STIMULATING HORMONE 0.88 uIU/mL (0.34-5.60)
[2021-12-09 08:50] LABS: FREE T4 (FREE THYROXINE) 0.69 ng/dL (0.58-1.64)
[2021-12-09 12:59] LABS: ESTIMATED AVERAGE GLUCOSE 111 mg/dL (70-100); HEMOGLOBIN A1c% 5.5 % (4.27-6.07)
== END 2021-12-09 07:55 | disposition home or self-care (01) ==
LOC: LAB 07:54
PROVIDERS: ATTEND Internal Medicine
DX: E78.5 Hyperlipidemia, unspecified (principal); R94.6 Abnormal results of thyroid function studies; R73.9 Hyperglycemia, unspecified; M10.9 Gout, unspecified
CPT/HCPCS: 36415; 80053; 80061; 83036; 83721; 84439; 84443; 84550

== ENCOUNTER 2022-02-03 14:38 | Outpatient (CLI) | payer OTHER ==
[2022-02-04 08:51] VITALS: BP 128/90
--- NOTE | 2022-02-04 08:51 | SLEEP CARE CONSULTATION ---
Information from patient questionnaire entered by Dawood Rogers. I have reviewed and concur with the information entered by Dawood Rogers. This document represents the service I personally performed and the decisions made by me, Ericka Rangel MD, [facility]. History of Present Illness Service Date and Time: 02/03/2022 1438 Reason for Visit: New patient Chief Complaint: reports: Observed pauses in breathing Date of Onset: 3-4 YEAR Usual bedtime: 930PM Time it takes to fall asleep: IT VARIES Snores at night: Yes Observed to quit breathing while asleep: Yes Sleeps alone due to snoring: No Number of times waking at night: 3-5 Reasons for waking at night: reports: Snoring, Pain, Other (NOISE ) Toss, Turn, or Twitch while sleeping: Yes Recalls having dreams: Yes Usually gets out of bed at: 410AM Feels refreshed in the morning: Yes Morning headache: No Sleepy or fatigued during the day: No Ever fallen asleep while driving: No Takes day naps: Yes Dreams during day naps: Yes Prior sleep studies: No Additional HPI information: I had the pleasure of seeing Mr. Prieto today regarding the possibility of him having a sleep disorder. As you know, he is a 51-year-old gentleman who complains of observed apneas, The patient tells me that he normally goes to bed around 9:30 pm, and it takes him approximately variable amount of time to fall asleep. He has been told that he snores loudly and irregularly at night. He has also been observed to stop breathing in his sleep. His can still sleep in the same bed. He can recall waking up on the average of 3 - 5 times during the night. Most of the time he wakes up because of having to use the bathroom and pain. He has awakened occasionally because of his own snoring, but not choking, or having to gasp for air. There is a lot of tossing and turning in his sleep. No somniloquy (sleep talking) or somnambulism (sleep walking). Generally, he can recall having dreams. In the morning he usually gets up out of the bed around 4:10 a.m. feeling refreshed and rested. He usually does not have a morning headache. During the day he does not feel sleepy or fatigued. His score on [place] Sleepiness Scale is 4 out of 24. He never has fallen asleep while driving nor has had any accident due to sleepiness. He usually takes naps during the day. He reports having impaired concentration during the day. 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 Patient is and lives in [place]. Have you smoked in the past 12 months: No Alcohol use: Yes Alcohol amount and frequency: 1/2 OZ 1 TIME PER WEEK Caffeine use: Yes Caffeine amount and frequency: 1 CAN 2 TIMES PER WEEK Family History Family history of sleep disordered breathing: Yes Family Hx Sleep Apnea: Sibling: Snoring, Sleep apnea - Treated Allergies and Home Medications Known drug allergies: No Drug allergies reviewed: Yes Home medication list reviewed: Yes (a statin) Allergy and home medication list: Allergies No Known Drug Allergies Allergy (Verified 08/01/19 09:50) Review of Systems Cardiovascular: denies: high blood pressure, palpitations, chest pain, irregular heart rate or pulse, leg or foot swelling, have to sleep sitting up, other Respiratory: denies: shortness of breath, wheeze, sputum production, chronic cough, other Gastrointestinal: denies: heartburn, difficulty swallowing, nausea, vomitting, diarrhea, abdominal pain, other Urinary: denies: incontinence, frequency, urgency, impotence, other Neurological: denies: headaches, seizure, head trauma, disorientation, speech dysfunction, gait or balance problems, fainting or unconsciousness, other Psychiatric: denies: Attention Deficit Hyperactivity, anxiety, depression, mood disorder, claustrophobia, other Ear/Nose/Throat: reports: other (POSSIBLE EUSTACIAN TUBE DYSFUNCTION ) Endocrine: denies: thyroid disease, history of goiter, sluggishness, too hot or cold, excessive thirst, increased appetite, increased urination, unexplained weakness, other Musculoskeletal: reports: joint pain, neck pain Immunologic: reports: allergies to food or environment Physical Exam Vital signs obtained and entered by: HUI BEVERLY Blood Pressure: 128/90 (LEFT ARM ) Cuff size: regular Heart Rate: 78 O2 Saturation: 98 Height: 5 ft 2 in Weight: 169 lb Body Mass Index: 30.9 BMI Classification: Obese Neck circumference: 15 (INCHES ) Mood/affect: Normal HEENT: No craniofacial malformation Nostrils: patent to airflow Turbinates: normal Septum: midline Mouth and throat: narrow oropharynx Soft palate: long Hard palate: normal Uvula: normal Uvula visualization: 50% Mallampati Class II Tongue: normal in size Tonsils: small Chin and jaw: normal size and position Neck: normal w/o lymphadenopathy or thyromegaly Heart: regular rate and rhythm Lungs: clear bilaterally Neurologic: intact Impression and Plan IMPRESSION: 1. Obstructive Sleep Apnea-Hypopnea Syndrome, as suggested by history of loud and irregular snoring, observed cessation of breath while asleep, and frequent awakenings. Narrow oropharynx and obesity are common predisposing factors for obstructive sleep apnea-hypopnea syndrome. I recommend proceeding to polysomnography to confirm the diagnosis and to assess severity. I informed the patient of what the sleep studies involve and after some discussion, he agreed to proceed. However, because he has [employer] as his insurance, a home sleep apnea test (HSAT) will be ordered. Plan: 1. Schedule a home sleep apnea test (HSAT). 2. Try to lose weight. 4. Return for follow up after the test. Counseling Topics: Weight loss health impact Follow up with Sleep Care in: 1-2 months Visit Type: In Office Time Spent with Patient (minutes): 15 Provider Statement: I spent 100% of the Face to Face Visit with the patient with greater than 50% spent counseling the patient and coordination of care.
== END 2022-02-03 14:39 | disposition home or self-care (01) ==
LOC: SC 14:38
PROVIDERS: ATTEND Internal Medicine Pulmonary Disease
DX: R06.81 Apnea, not elsewhere classified (principal); R06.83 Snoring; G47.8 Other sleep disorders; E66.9 Obesity, unspecified; Z68.30 Body mass index [BMI] 30.0-30.9, adult
CPT/HCPCS: 99202; 99212

== ENCOUNTER 2022-02-19 19:34 | Outpatient (CLI) | payer OTHER | END 2022-02-19 19:35 | disposition home or self-care (01) | LOC: SC 19:34 | PROVIDERS: ATTEND Nurse Practitioner Family | DX: G47.33 Obstructive sleep apnea (adult) (pediatric) (principal); E66.9 Obesity, unspecified; Z68.30 Body mass index [BMI] 30.0-30.9, adult | CPT/HCPCS: 95810 ==

== ENCOUNTER 2022-03-27 14:44 | Outpatient (CLI) | payer OTHER ==
[2022-03-27 15:44] VITALS: BP 110/74
--- NOTE | 2022-03-27 15:44 | SLEEP CARE CONSULTATION ---
Information from patient questionnaire entered by Kourtney Zamora. I have reviewed and concur with the information entered by Kourtney Zamora. This document represents the service I personally performed and the decisions made by me, Liliam Parra ARNP. History of Present Illness Service Date and Time: 03/27/2022 1444 Initial [place] Sleepiness Scale score: 4 Current [place] Sleepiness Scale score: 7 (03/27/22) Additional HPI information: CHAR GONZALEZ returns for follow up and results of the recently performed polysomnography. I explained the pathophysiology behind obstructive sleep apnea. We then spent quite a bit of time discussing different treatment options. For mild obstructive sleep apnea, surgery and oral appliance are alternatives to nasal CPAP therapy but in moderate or severe cases, nasal CPAP is the most effective and reliable treatment. Because apnea is primarily in supine position, then positional management therapy could be effective. Methods discussed such as positioning with pillows to prevent supine sleep. I reviewed the impact of weight changes on sleep apnea and strongly recommended losing weight. After some discussion, the patient opted to go with the nasal CPAP therapy. Nasal autoCPAP set at 4-15 cmH20 will be ordered with rationale explained. A manual titration study will be ordered if unable to find optimal pressure with office adjustments. I explained how CPAP machine works and what to expect when using the machine. Using CPAP every night in order to get used to it was emphasized. Patient advised to put CPAP mask on before getting into bed so as not to fall asleep without CPAP. To assist acclimation to CPAP use, it could also be used for a short time during day while reading or watching TV. The patient was instructed to call the CPAP supplier to discuss any mechanical problem that may occur. If the mask given is uncomfortable or is difficult to keep on through the night even with adjustment, contact the CPAP supplier as many will replace with another mask style if notified before 30 days. If snoring or perceives is not getting enough air or too much air from the machine, notify this office. Patient counseled not drink alcohol less than 4 hours before bedtime as it can increase snoring and apnea. Patient was cautioned about risks of drowsy driving until sleepiness symptoms resolve. Patient denies drowsy driving. Sleep Study - Results Type of Sleep Study: Polysomnography (COMPLETED 02/19/22) Prior sleep studies: No Polysomnography/Home Sleep Study results: IMPRESSION: The quality of the study is good. The patient had normal sleep efficiency. The sleep architecture was abnormal for sleep fragmentation and reduced amount of time spent in slow wave sleep (N3). Respiratory monitoring showed moderate obstructive sleep apnea-hypopnea (AHI = 16.3) associated with frequent arousals, oxyhemoglobin desaturation and mild hypoxia (sarbjit oxygen saturation of 82%). The respiratory events occurred more frequently during supine sleep (supine AHI = 17.9; non-supine = 8.99). Snore was moderate to loud in intensity. There was no significant periodic leg movement of sleep. Cardiac rhythm was normal sinus rhythm without significant arrhythmia. No abnormal behavior (parasomnia) observed during the night. Allergies and Home Medications Drug allergies reviewed: Yes (NKDA) Home medication list reviewed: Yes (rosuvastatin cut in half to 10 mg) Review of Systems Review of systems same as previous: Yes (no changes) Physical Exam Vital signs obtained and entered by: KOURTNEY Hughes MA Blood Pressure: 110/74 (left arm) Cuff size: regular Heart Rate: 88 O2 Saturation: 99 Height: 5 ft 2 in Weight: 170 lb 6.4 oz Body Mass Index: 31.1 BMI Classification: Obese Impression and Plan 1. Obstructive Sleep Apnea-Hypopnea Syndrome, moderate, with lowest oxygen saturation of 82%. Obviously this is the cause of the patients symptoms of unrefreshed sleep, and excessive daytime sleepiness. As mentioned above, the patient will be started on nasal autoCPAP therapy with pressure set at 4-15 cmH2 O. Compliance guidelines also reviewed. A copy of compliance guidelines will be given for reference at check out. Because the apnea is more severe supine, I instructed to avoid sleeping supine using pillow positioning until able to start CPAP use. * Nasal auto CPAP therapy, pressure at 4-15 cm H2O. * Attempt to lose weight. * Avoid alcohol consumption near bedtime. * Avoid supine sleep until using CPAP. * The patient is again cautioned about driving until sleepiness completely resolves. * Return one month after CPAP obtained. I will assess response to therapy and compliance at that time. Counseling Topics: Weight loss health impact Visit Type: In Office Time Spent with Patient (minutes): 24 Provider Statement: I spent 100% of the Face to Face Visit with the patient with greater than 50% spent counseling the patient and coordination of care.
== END 2022-03-27 14:45 | disposition home or self-care (01) ==
LOC: SC 14:44
PROVIDERS: ATTEND Nurse Practitioner Family
DX: G47.33 Obstructive sleep apnea (adult) (pediatric) (principal); E66.9 Obesity, unspecified; Z68.31 Body mass index [BMI] 31.0-31.9, adult
CPT/HCPCS: 99212; 99213

== ENCOUNTER 2022-05-12 07:52 | Outpatient (CLI) | payer OTHER ==
[2022-05-12 08:30] LABS: ALBUMIN 4.6 g/dL (3.2-5.5); ALBUMIN/GLOBULIN RATIO 1.6 (1.0-2.2); ALKALINE PHOSPHATASE 70 IU/L (42-121); ALT ALANINE AMINOTRANSFERASE 85 IU/L (10-60); AST ASPARTATE AMINOTRANSFERASE 48 IU/L (10-42); BUN - BLOOD UREA NITROGEN 19 mg/dL (6-20); CALCIUM 9.5 mg/dL (8.5-10.3); CARBON DIOXIDE - CO2 26 mmol/L (21-32); CHLORIDE 108 mmol/L (101-111); CHOL/HDL RATIO 3.4 (<5.0); CHOLESTEROL 158 mg/dL; GFR - MDRD 78 (>89); GLUCOSE 109 mg/dL (70-100); HDL CHOLESTEROL 47 mg/dL; LDL CHOLESTEROL,CALCULATED 63 mg/dL; LDL/HDL RATIO 1.3 (<3.6); POTASSIUM 4.3 mmol/L (3.5-5.0); SODIUM 141 mmol/L (135-145); TOTAL PROTEIN 7.5 g/dL (6.7-8.2); TRIGLYCERIDES 239 mg/dL; VLDL CHOLESTEROL 48 mg/dL
[2022-05-12 13:11] LABS: ESTIMATED AVERAGE GLUCOSE 120 mg/dL (70-100); HEMOGLOBIN A1c% 5.8 % (4.27-6.07)
== END 2022-05-12 07:53 | disposition home or self-care (01) ==
LOC: LAB 07:52
PROVIDERS: ATTEND Physician Assistant Medical
DX: E78.5 Hyperlipidemia, unspecified (principal); R73.9 Hyperglycemia, unspecified
CPT/HCPCS: 36415; 80053; 80061; 83036; 83721

== ENCOUNTER 2022-06-23 06:57 | Outpatient (CLI) | payer OTHER ==
--- NOTE | 2022-06-23 08:55 | Ultrasound Report ---
PROCEDURE: Abdomen Limited INDICATIONS: ELEVATED LIVER ENZYMES TECHNIQUE: Real-time focused scanning was performed of the abdomen, with image documentation. COMPARISONS: None. FINDINGS: Liver: Increased liver echogenicity, commonly mild hepatic steatosis. Gallbladder: Unremarkable. Biliary ducts: Intrahepatic bile ducts are non-dilated. Extrahepatic bile duct caliber measures 4.3 mm. Normal is 6-7 mm or less in diameter, or 10 mm or less post-cholecystectomy. Pancreas: Visualized portions of the pancreas are sonographically normal. Right kidney: Normal in size and echotexture. Right kidney measures 10.2 cm long. No hydronephrosis or nephrolithiasis. No solid masses. No complex renal cystic lesions which require follow-up. Aorta: Visualized aorta is normal in caliber at less than 3 cm. IVC: Intrahepatic inferior vena cava is patent. Miscellaneous: No free abdominal fluid. IMPRESSION: Mild hepatic steatosis. Reviewed by: Luis Boyle on 06/23/2022 8:54 AM PDT Approved by: Luis Boyle on 06/23/2022 8:54 AM PDT Station ID: [id number]
== END 2022-06-23 06:58 | disposition home or self-care (01) ==
LOC: DI 06:57
PROVIDERS: ATTEND Physician Assistant Medical
DX: K76.0 Fatty (change of) liver, not elsewhere classified (principal)

== ENCOUNTER 2022-06-23 13:43 | Outpatient (CLI) | payer OTHER ==
[2022-06-24 08:34] VITALS: BP 102/60
--- NOTE | 2022-06-24 08:34 | SLEEP CARE CONSULTATION ---
Information from patient questionnaire entered by Marleny Zamora. I have reviewed and concur with the information entered by Marleny Zamora. This document represents the service I personally performed and the decisions made by me, Ericka Rangel MD, [facility]. History of Present Illness Service Date and Time: 06/23/2022 1343 Reason for follow up: first compliance Equipment type: CPAP (RESMED SD CARD NEEDED FOR DOWNLOAD AND PRESSURE CHANGES) Prior sleep studies: No Type of Sleep Study: Polysomnography (COMPLETED 02/19/22) HPI additional information: Mr. Prieto was diagnosed to have moderate obstructive sleep apnea-hypopnea syndrome and returns today for follow up of CPAP therapy. The patient purchased the device from [employer] and was fitted with a ResMed F30 full face mask. He uses the device nightly and all through the night. The compliance report shows that he uses the device 63 nights out of the past 74 nights, averaging 4.3 hours a night. The > 4 hour compliance rate for the past 30 days is 57%. He complains of no particular problem with the device such as soreness on the face, dry nose, epistaxis, nasal congestion or headache. He thinks that the pressure of 4 - 15 cmH2O is comfortable. On the CPAP therapy he notices improvement in his sleep quality, and that he wakes up feeling fresher in the morning and more awake/alert during the day. His notices no snore at all. [place] Sleepiness Scale score is 7. The average residual AHI is 0.5; and average air leak is 0.2 L/minute. The 90th percentile pressure is 12.1 cmH2O. Sleep Study - Results Type of Sleep Study: Polysomnography (COMPLETED 02/19/22) Prior sleep studies: No Subjective Initial [place] Sleepiness Scale score: 4 Current [place] Sleepiness Scale score: 7 (06/23/22) Allergies and Home Medications Drug allergies reviewed: Yes Home medication list reviewed: Yes Allergy and home medication list: Allergies No Known Drug Allergies Allergy (Verified 06/20/22 13:26) Review of Systems Review of systems same as previous: Yes Physical Exam Vital signs obtained and entered by: MARLENY Hughes MA Blood Pressure: 102/60 (LEFT ARM) Cuff size: regular Heart Rate: 58 O2 Saturation: 96 Height: 5 ft 2 in Weight: 170 lb 9.6 oz Body Mass Index: 31.1 BMI Classification: Obese Impression and Plan IMPRESSION: 1. Obstructive Sleep Apnea-Hypopnea Syndrome, moderate (AHI was 16.3), with the patient continuing to do well on nasal CPAP therapy. He has decent compliance and significant clinical benefits. The current pressure appears effective and comfortable. Overall, he is very satisfied with treatment and plans to continue with it long-term. No adjustment is necessary today. PLAN: 1. Continue with autoCPAP set at 4 - 15 cm H2O. 2. Try a ResMed F30i full face mask. 3. To help lessen the air leak, I will lower the pressure range to 4 10 cmH2O . 4. Return for follow up in a year or earlier if there is any problem Adjust device pressure to (cmH2O): 4-10 Follow up with Sleep Care in: 1 year Visit Type: In Office Time Spent with Patient (minutes): 15 Provider Statement: I spent 100% of the Face to Face Visit with the patient with greater than 50% spent counseling the patient and coordination of care.
== END 2022-06-23 13:44 | disposition home or self-care (01) ==
LOC: SC 13:43
PROVIDERS: ATTEND Internal Medicine Pulmonary Disease
DX: G47.33 Obstructive sleep apnea (adult) (pediatric) (principal); E66.9 Obesity, unspecified; Z68.31 Body mass index [BMI] 31.0-31.9, adult
CPT/HCPCS: 99212

== ENCOUNTER 2022-11-10 07:42 | Outpatient (CLI) | payer OTHER ==
[2022-11-10 08:00] LABS: BASOPHILS % (AUTO) 0.4 %; EOSINOPHILS # (AUTO) 0.2 10^3/uL (0.0-0.7); EOSINOPHILS % (AUTO) 2.9 %; HCT - HEMATOCRIT 42.7 % (42.0-52.0); HGB - HEMOGLOBIN 14.2 g/dL (14.0-18.0); LYMPHOCYTES # (AUTO) 1.8 10^3/uL (1.5-3.5); MEAN CORPUSCULAR HGB CONC 33.3 g/dL (32.0-36.0); MEAN CORPUSCULAR VOLUME 87.1 fL (80.0-94.0); MONOCYTES # (AUTO) 0.3 10^3/uL (0.0-1.0); MONOCYTES % (AUTO) 6.5 %; NEUTROPHILS # (AUTO) 2.9 10^3/uL (1.5-6.6); NEUTROPHILS % (AUTO) 55.8 %; PLT - PLATELET COUNT 216 10^3/uL (130-450); RED CELL DISTRIBUTION WIDTH 12.3 % (12.0-15.0); WHITE BLOOD COUNT 5.2 x10^3/uL (4.8-10.8)
[2022-11-10 08:14] LABS: ALBUMIN 4.7 g/dL (3.2-5.5); ALBUMIN/GLOBULIN RATIO 1.9 (1.0-2.2); ALKALINE PHOSPHATASE 77 IU/L (42-121); ALT ALANINE AMINOTRANSFERASE 46 IU/L (10-60); AST ASPARTATE AMINOTRANSFERASE 22 IU/L (10-42); BILIRUBIN,TOTAL 0.8 mg/dL (0.2-1.0); BUN - BLOOD UREA NITROGEN 18 mg/dL (6-20); CALCIUM 9.4 mg/dL (8.5-10.3); CARBON DIOXIDE - CO2 28 mmol/L (21-32); CHLORIDE 107 mmol/L (101-111); CHOLESTEROL 134 mg/dL; GFR - MDRD 78 (>89); GLUCOSE 111 mg/dL (74-104); HDL CHOLESTEROL 44 mg/dL; LDL CHOLESTEROL,CALCULATED 51 mg/dL; LDL/HDL RATIO 1.2 (<3.6); SODIUM 140 mmol/L (135-145); TOTAL PROTEIN 7.2 g/dL (6.4-8.9); TRIGLYCERIDES 193 mg/dL (48-352); URIC ACID 7.9 mg/dL (4.4-7.6); VLDL CHOLESTEROL 39 mg/dL
[2022-11-10 08:54] LABS: THYROID STIMULATING HORMONE 0.67 uIU/mL (0.34-5.60)
[2022-11-10 09:10] LABS: ESTIMATED AVERAGE GLUCOSE 123 mg/dL (70-100); HEMOGLOBIN A1c% 5.9 % (4.27-6.07)
== END 2022-11-10 07:43 | disposition home or self-care (01) ==
LOC: LAB 07:42
PROVIDERS: ATTEND Physician Assistant Medical
DX: Z00.00 Encounter for general adult medical examination without abnormal findings (principal); E78.5 Hyperlipidemia, unspecified; R73.9 Hyperglycemia, unspecified; Z12.5 Encounter for screening for malignant neoplasm of prostate; M10.9 Gout, unspecified
CPT/HCPCS: 36415; 80053; 80061; 83036; 83721; 84153; 84443; 84550; 85025

== ENCOUNTER 2023-06-01 07:32 | Outpatient (CLI) | payer OTHER ==
[2023-06-01 08:06] LABS: BUN - BLOOD UREA NITROGEN 14 mg/dL (6-20); CALCIUM 9.7 mg/dL (8.5-10.3); CARBON DIOXIDE - CO2 28 mmol/L (21-32); CHLORIDE 106 mmol/L (101-111); CHOL/HDL RATIO 2.2 (<5.0); CHOLESTEROL 113 mg/dL; CREATININE 0.9 mg/dL (0.6-1.3); GFR - MDRD 88 (>89); GLUCOSE 111 mg/dL (74-104); HDL CHOLESTEROL 51 mg/dL; LDL CHOLESTEROL,CALCULATED 26 mg/dL; LDL/HDL RATIO 0.5 (<3.6); POTASSIUM 4.3 mmol/L (3.5-4.5); SODIUM 140 mmol/L (135-145); TRIGLYCERIDES 178 mg/dL (48-352); VLDL CHOLESTEROL 36 mg/dL
[2023-06-01 11:15] LABS: ESTIMATED AVERAGE GLUCOSE 117 mg/dL (70-100); HEMOGLOBIN A1c% 5.7 % (4.27-6.07)
== END 2023-06-01 07:33 | disposition home or self-care (01) ==
LOC: LAB 07:32
PROVIDERS: ATTEND Physician Assistant Medical
DX: E78.5 Hyperlipidemia, unspecified (principal); R73.9 Hyperglycemia, unspecified
CPT/HCPCS: 36415; 80048; 80061; 83036; 83721

== ENCOUNTER 2023-06-10 07:55 | Emergency (ER) | payer OTHER ==
--- NOTE | 2023-06-10 09:03 | ED Physician Documentation ---
History of Present Illness - Stated complaint Stated Complaint: LWR ABD PX - Chief complaint Chief Complaint: Back Pain - History obtained from History obtained from: Patient - Additonal information Additional information: The patient comes to the emergency department chief complaint of 4 days of left lower quadrant pain and decreased bowel output. He states that he has also had some left-sided back pain. No right-sided symptoms. The patient states it started after he did some weighted lunges and squats at the gym, but he did not really feel like he injured himself. At first he thought his muscles might just be sore from the workout, but the pain continued to worsen instead of getting better. He denies any migration of the pain from the original locations. It just seems to wrap around from his back to his left lower quadrant. No blood in his stools. No blood in his urine. No dysuria. No fevers or chills. No nausea or vomiting. No diarrhea. He states that he normally has a bowel movement 5 or 6 times a day and passes lots of gas but that he is only been going 1 or 2 times a day and not nearly passing as much gas. He states he is also just felt bloated and that his abdominal girth is increased. He states he has a constant urge to defecate but just cannot seem to get much out. No other symptoms or complaints. He is otherwise healthy. PD PAST MEDICAL HISTORY - Past Medical History Past Medical History: Yes Cardiovascular: High cholesterol Respiratory: Sleep apnea Neuro: None Endocrine/Autoimmune: None GI: Other : None Psych: None Musculoskeletal: None, Other Derm: None - Past Surgical History Past Surgical History: Yes General: Colonoscopy, Other - Present Medications Home Medications: Ambulatory Orders Medication Instructions Recorded Confirmed Amox/Clav 875/125 [Augmentin] 1 each PO Q12H #20 tablet 06/10/23 Rosuvastatin Calcium [Crestor] 10 mg PO DAILY 06/10/23 06/10/23 predniSONE [Deltasone] 60 mg PO DAILY 3 Days #9 tablet 06/10/23 - Allergies Allergies/Adverse Reactions: Allergies Allergy/AdvReac Type Severity Reaction Status Date / Time levofloxacin [From Levaquin] Allergy Hives Verified 06/10/23 12:40 metronidazole [From Flagyl] Allergy Hives Verified 06/10/23 12:40 - Social History Does the pt smoke?: No Smoking Status: Never smoker Does the pt drink ETOH?: No Does the pt have substance abuse?: No - Immunizations Immunizations are current?: Yes - POLST Patient has POLST: No PD ED PE NORMAL - Vitals Vital signs reviewed: Yes - General General: Alert and oriented X 3, No acute distress, Well developed/nourished - HEENT HEENT: Atraumatic, PERRL, EOMI, Moist mucous membranes - Neck Neck: Supple, no meningeal sign - Cardiac Cardiac: RRR, No murmur - Respiratory Respiratory: No respiratory distress, Clear bilaterally - Abdomen Abdomen: Soft, Non tender, Non distended - Back Back: No spinal TTP, Other (Tenderness palpation left lumbar paraspinal musculature.) - Derm Derm: Normal color, Warm and dry, No rash - Extremities Extremities: No deformity, No edema - Neuro Neuro: Alert and oriented X 3 - Psych Psych: Normal mood, Normal affect Results - Vitals Vitals: Vital Signs - 24 hr 06/10/23 11:33 Temperature 36.7 C Heart Rate 53 L Respiratory 16 Rate Blood Pressure 137/79 H O2 Saturation 98 Oxygen O2 Source Room air - Labs Labs: Laboratory Tests 06/10/23 06/10/23 06/10/23 09:07 09:07 09:34 WBC 4.7 L RBC 5.16 Hgb 14.6 Hct 45.1 MCV 87.4 MCH 28.3 MCHC 32.4 RDW 12.5 Plt Count 229 MPV 9.0 Neut # (Auto) 2.4 Lymph # (Auto) 1.8 [place] # (Auto) 0.3 Eos # (Auto) 0.1 Baso # (Auto) 0.0 Absolute Nucleated RBC 0.00 Nucleated RBC % 0.0 Sodium 139 Potassium 3.7 Chloride 106 Carbon Dioxide 26 Anion Gap 7.0 BUN 17 Creatinine 0.9 Estimated GFR (MDRD) 88 L Glucose 101 Calcium 9.9 Total Bilirubin 0.9 AST 19 ALT 36 Alkaline Phosphatase 75 Total Protein 7.1 Albumin 4.6 Globulin 2.5 Albumin/Globulin Ratio 1.8 Lipase 30 Urine Color YELLOW Urine Clarity CLEAR Urine pH 6.0 Ur Specific [place] 1.020 Urine Protein NEGATIVE Urine Glucose (UA) NEGATIVE Urine Ketones NEGATIVE Urine Occult Blood NEGATIVE Urine Nitrite NEGATIVE Urine Bilirubin NEGATIVE Urine Urobilinogen 0.2 (NORMAL) Ur Leukocyte Esterase NEGATIVE Ur Microscopic Review NOT INDICATED Urine Culture Comments NOT INDICATED - Rads (name of study) CT abd/pelvis Relevant Findings:: Final report received, See rad report (thickened descending bowel, colitis vs diverticulitis) PD Medical Decision Making - ED course Complexity details: reviewed results, re-evaluated patient, considered differential, d/w patient ED course: The patient overall looked good, but given his several days of worsening left lower quadrant pain and change in bowel output, I felt he should be evaluated for possible intra-abdominal pathology. He was worked up with labs and urinalysis, as well as CT scan of the abdomen and pelvis. Labs were unremarkable. CT showed thickened bowel, possible diverticulitis. Pt was started on Flagyl and Levaquin in the ED and d/c with prescription for the same. We have discussed the usual indications for return. Departure - Departure Disposition: 01 Home, Self Care Clinical Impression: Diverticulitis Condition: Stable Instructions: ED Diverticulitis Comments: Your CT scan shows diverticulitis, and inflammation of the "pouches" that come off of the large intestine. This can occasionally happen, as we have discussed, and is generally treatable with antibiotics and nothing more. The irritation from the inflamed diverticuli is most likely the reason you keep feeling as though you need to have a bowel movement. Your bowel should return to normal function once you have completed your antibiotic course and the diverticulitis has been eradicated. Please drink plenty of fluids and eat high-fiber diet to help move your bowels. Please follow-up with your primary doctor as needed. You have been started on antibiotics here in the emergency department. The prescription for the remainder has been electronically transmitted to [facility] pharmacy in [place]. Please pick this up when you are done in the ER so that you can take your next dose this afternoon or evening. Discharge Date/Time: 06/10/23 11:33
[2023-06-10 09:13] LABS: BASOPHILS % (AUTO) 0.6 %; EOSINOPHILS # (AUTO) 0.1 10^3/uL (0.0-0.7); HCT - HEMATOCRIT 45.1 % (42.0-52.0); HGB - HEMOGLOBIN 14.6 g/dL (14.0-18.0); LYMPHOCYTES # (AUTO) 1.8 10^3/uL (1.5-3.5); LYMPHOCYTES % (AUTO) 38.3 %; MEAN CORPUSCULAR HEMOGLOBIN 28.3 pg (27.0-31.0); MEAN CORPUSCULAR HGB CONC 32.4 g/dL (32.0-36.0); MEAN CORPUSCULAR VOLUME 87.4 fL (80.0-94.0); MONOCYTES # (AUTO) 0.3 10^3/uL (0.0-1.0); MONOCYTES % (AUTO) 6.8 %; NEUTROPHILS # (AUTO) 2.4 10^3/uL (1.5-6.6); NEUTROPHILS % (AUTO) 51.1 %; PLT - PLATELET COUNT 229 10^3/uL (130-450); RED BLOOD COUNT 5.16 10^6/uL (4.70-6.10); RED CELL DISTRIBUTION WIDTH 12.5 % (12.0-15.0); WHITE BLOOD COUNT 4.7 x10^3/uL (4.8-10.8)
[2023-06-10 09:30] LABS: ALBUMIN 4.6 g/dL (3.2-5.5); ALBUMIN/GLOBULIN RATIO 1.8 (1.0-2.2); BILIRUBIN,TOTAL 0.9 mg/dL (0.2-1.0); CALCIUM 9.9 mg/dL (8.5-10.3); CREATININE 0.9 mg/dL (0.6-1.3); POTASSIUM 3.7 mmol/L (3.5-4.5); TOTAL PROTEIN 7.1 g/dL (6.4-8.9)
[2023-06-10] MEDS ORDERED: iohexoL-300 100 ML VIAL ONE (09:40)
[2023-06-10 09:43] LABS: BILIRUBIN,URINE NEGATIVE (NEGATIVE); GLUCOSE, URINE (UA) NEGATIVE (NEGATIVE); KETONES,URINE (UA) NEGATIVE (NEGATIVE); LEUKOCYTE ESTERASE, URINE NEGATIVE (NEGATIVE); NITRITE,URINE NEGATIVE (NEGATIVE); OCCULT BLOOD,URINE NEGATIVE (NEGATIVE); PROTEIN,URINE NEGATIVE (NEGATIVE); UROBILINOGEN,URINE 0.2 (NORMAL) E.U./dL (NORMAL)
[2023-06-10 09:44] LABS: CLARITY,URINE CLEAR (CLEAR)
--- NOTE | 2023-06-10 10:08 | CT Report ---
PROCEDURE: Abdomen/Pelvis W INDICATIONS: LLQ abd pain x 4 days, bloating, decreased output CONTRAST: Omni 300 100ml TECHNIQUE: After the administration of intravenous contrast, a CT scan of the abdomen and pelvis was performed. Images were recorded and evaluated at appropriate window settings. Reformats: coronal and sagittal. F or radiation dose reduction, the following was used: automated exposure control, adjustment of mA and /or kV according to patient size. COMPARISON: Right upper quadrant ultrasound dated 06/23/2022 FINDINGS: Image quality: Diagnostic. Lower chest: Unremarkable. Liver: Mild diffuse hepatic steatosis. No focal liver lesion. Gallbladder and biliary tree: No radiopaque stones or wall thickening. No biliary dilation. Spleen: No splenomegaly. Pancreas: No pancreatic ductal dilation. Adrenals: No adrenal nodule. Kidneys and ureters: No hydronephrosis. No renal cystic lesion which requires follow up. No solid mas s. Stomach, bowel and peritoneum: No bowel distension. No pathologic free fluid. Mild diverticulosis. Qu estion mild focal acute diverticulitis involving the proximal sigmoid. No free air, free fluid, or ab scess cavity. Lymph nodes: No central or retroperitoneal adenopathy. Vessels: No infrarenal aortic aneurysm. PELVIS Reproductive organs: Unremarkable. Bladder: No abnormal wall thickening, accounting for underdistention. Pelvic lymph nodes: No pelvic adenopathy by size criteria. Bones: No aggressive osseous abnormality. Other: Very small fat-containing right inguinal hernia. IMPRESSION: 1. Question mild acute proximal sigmoid diverticulitis superimposed on mild diverticulosis. 2. Mild diffuse hepatic steatosis. Reviewed by: Cortes Burgos MD on 06/10/2023 10:07 AM PDT Approved by: Cortes Burgos MD on 06/10/2023 10:07 AM PDT Station ID: [id number]
[2023-06-10] MEDS: iohexoL-300 100 ML VIAL IVP ONE (10:22)
[2023-06-10] MEDS ORDERED: levoFLOXacin 250 MG TABLET PO STA (10:24)
[2023-06-10] MEDS: metroNIDAZOLE 250 MG TABLET PO STA (11:21)
[2023-06-10] MEDS: levoFLOXacin 250 MG TABLET PO STA (11:22)
[2023-06-10 11:38] VITALS: BP 137/79; O2SAT 98
== END 2023-06-10 11:33 | disposition home or self-care (01) ==
LOC: ED 07:55
DX: K57.32 Diverticulitis of large intestine without perforation or abscess without bleeding (principal); L50.0 Allergic urticaria
CPT/HCPCS: 36415; 74177; 80053; 81003; 83690; 85025; 96372; 99283; 99284; A9270; Q9967; 81001; 87086

== ENCOUNTER 2023-06-10 12:07 | Emergency (ER) | payer OTHER ==
--- NOTE | 2023-06-10 12:26 | ED Physician Documentation ---
PD HPI SKIN - Stated complaint Stated Complaint: ITCHY ALL OVER - Chief complaint Chief Complaint: Allergic Rx - History obtained from History obtained from: Patient - Additional information Additional information: The patient returns to the emergency department after just being discharged with diagnosis of diverticulitis for chief complaint this time of itching and rash. The patient was given doses of Levaquin and Flagyl prior to discharge and states that he stopped for lunch on his way home and began to notice that he was having itching and developing some hives. He states he has not actually eaten any food when the symptoms began. He has not previously had any known allergies to anything. He denies any swelling in his throat. No difficulty breathing. No other complaints at this time. He states he has only a few hives on his face neck and chest. PD PAST MEDICAL HISTORY - Past Medical History Cardiovascular: High cholesterol Respiratory: Sleep apnea Neuro: None Endocrine/Autoimmune: None GI: Other : None Psych: None Musculoskeletal: None, Other Derm: None - Past Surgical History Past Surgical History: Yes General: Colonoscopy, Other - Present Medications Home Medications: Ambulatory Orders Medication Instructions Recorded Confirmed Amox/Clav 875/125 [Augmentin] 1 each PO Q12H #20 tablet 06/10/23 Rosuvastatin Calcium [Crestor] 10 mg PO DAILY 06/10/23 06/10/23 predniSONE [Deltasone] 60 mg PO DAILY 3 Days #9 tablet 06/10/23 - Allergies Allergies/Adverse Reactions: Allergies Allergy/AdvReac Type Severity Reaction Status Date / Time No Known Drug Allergies Allergy Verified 06/10/23 12:12 - Social History Does the pt smoke?: No Smoking Status: Never smoker Does the pt drink ETOH?: No Does the pt have substance abuse?: No - Immunizations Immunizations are current?: Yes - POLST Patient has POLST: No PD ED PE NORMAL - Vitals Vital signs reviewed: Yes - General General: Alert and oriented X 3, No acute distress, Well developed/nourished - HEENT HEENT: Atraumatic, PERRL, EOMI, Moist mucous membranes, Other (No oropharyngeal edema.) - Neck Neck: Supple, no meningeal sign - Cardiac Cardiac: RRR, No murmur, Strong equal pulses - Respiratory Respiratory: No respiratory distress, Clear bilaterally - Derm Derm: Normal color, Warm and dry, Other (Occasional hives, very scant, on face and neck, back, and chest.) - Extremities Extremities: No deformity - Neuro Neuro: Other - Psych Psych: Normal mood, Normal affect Results - Vitals Vitals: Vital Signs - 24 hr 06/10/23 12:13 Temperature 36.8 C Heart Rate 92 Respiratory 18 Rate Blood Pressure 146/92 H O2 Saturation 100 Oxygen O2 Source Room air PD Medical Decision Making - ED course Complexity details: considered differential, d/w patient ED course: Grossly intact I discussed with the patient that at this point unfortunately we have no way of knowing whether he is reacting to the Flagyl or the Levaquin. As such, we will take him off both and just do Augmentin. I have reviewed up-to-date with mixed recommendations on whether to do antibiotics at all for diverticulitis anymore, And given that this reaction knocks out the possibility of using fluoroquinolones or Flagyl, I think this is the best course at this time. He has been given a dose of Decadron, and I will prescribe prednisone along with the Augmentin. I have advised him to get some Benadryl on the way home since he has to drive himself. We have discussed the usual indications for return. The patient understands that we will cancel the previously transmitted prescriptions for Flagyl and Levaquin and we will replace this with Augmentin. Departure - Departure Disposition: 01 Home, Self Care Clinical Impression: Allergic urticaria, Diverticulitis Condition: Stable Instructions: ED Drug React Allergic Prescriptions: Amox/Clav 875/125 [Augmentin] 1 each PO Q12H #20 tablet predniSONE [Deltasone] 60 mg PO DAILY 3 Days #9 tablet Comments: Unfortunately, there is no way to know which of the 2 antibiotics you are reacting to and so we will have to cancel both of them. I have sent a prescription for a new antibiotic that is unrelated to either of the first 2 that we gave you, to the [facility] pharmacy in [place]. Have also sent a prescription for short course of steroids. The prescriptions for the other 2 antibiotics have been canceled. Please coal picker Benadryl while you are at the pharmacy and you may take 25 to 50 mg every 6 hours as needed for allergic symptoms. You may take this along with your steroid. If you begin to notice swelling in your mouth or throat or any difficulty breathing, you will need to return to the emergency department. Forms: PCP List
[2023-06-10] MEDS: DEXAMETHASONE 10 MG/ML VIAL IM STA (12:28)
[2023-06-10 12:51] VITALS: BP 153/88; O2SAT 99
== END 2023-06-10 13:12 | disposition home or self-care (01) ==
LOC: ED 12:07
DX: L50.0 Allergic urticaria (principal); K57.92 Diverticulitis of intestine, part unspecified, without perforation or abscess without bleeding
CPT/HCPCS: 96372; 99283

== ENCOUNTER 2023-06-19 16:06 | Emergency (ER) | payer OTHER ==
[2023-06-19 16:18] VITALS: O2SAT 100
[2023-06-19 17:31] LABS: BASOPHILS % (AUTO) 0.4 %; EOSINOPHILS # (AUTO) 0.3 10^3/uL (0.0-0.7); EOSINOPHILS % (AUTO) 3.1 %; HGB - HEMOGLOBIN 14.3 g/dL (14.0-18.0); LYMPHOCYTES # (AUTO) 2.3 10^3/uL (1.5-3.5); LYMPHOCYTES % (AUTO) 29.1 %; MEAN CORPUSCULAR HEMOGLOBIN 28.4 pg (27.0-31.0); MEAN CORPUSCULAR HGB CONC 32.5 g/dL (32.0-36.0); MEAN CORPUSCULAR VOLUME 87.3 fL (80.0-94.0); MEAN PLATELET VOLUME 8.8 fL (7.4-11.4); MONOCYTES # (AUTO) 0.5 10^3/uL (0.0-1.0); MONOCYTES % (AUTO) 5.9 %; NEUTROPHILS # (AUTO) 4.9 10^3/uL (1.5-6.6); NEUTROPHILS % (AUTO) 61.1 %; PLT - PLATELET COUNT 243 10^3/uL (130-450); RED BLOOD COUNT 5.04 10^6/uL (4.70-6.10); RED CELL DISTRIBUTION WIDTH 12.7 % (12.0-15.0); WHITE BLOOD COUNT 7.9 x10^3/uL (4.8-10.8)
--- NOTE | 2023-06-19 17:35 | XRAY Report ---
PROCEDURE: Chest 2V INDICATIONS: chest pain TECHNIQUE: 2 views of the chest were acquired. COMPARISON: None. FINDINGS: Surgical changes and devices: None. Lungs and pleura: No pleural effusions or pneumothorax. Lungs are clear. Mediastinum: Mediastinal contours appear normal. Heart size is normal. Bones and chest wall: No suspicious bony lesions. Overlying soft tissues appear unremarkable. IMPRESSION: No acute cardiopulmonary process. Reviewed by: Cortes Burgos MD on 06/19/2023 5:34 PM PDT Approved by: Cortes Burgos MD on 06/19/2023 5:34 PM PDT Station ID: [id number]
[2023-06-19 17:46] LABS: ALBUMIN 4.6 g/dL (3.2-5.5); ALBUMIN/GLOBULIN RATIO 2.2 (1.0-2.2); BILIRUBIN,TOTAL 0.5 mg/dL (0.2-1.0); CALCIUM 9.3 mg/dL (8.5-10.3); CREATININE 0.9 mg/dL (0.6-1.3); POTASSIUM 3.6 mmol/L (3.5-4.5); TOTAL PROTEIN 6.7 g/dL (6.4-8.9)
[2023-06-19] MEDS: GI COCKTAIL 120 ML BOTTLE PO STA (17:49)
[2023-06-19 17:50] LABS: TROPONIN I HIGH SENSITIVITY 3.8 ng/L (2.3-19.7)
[2023-06-19 18:14] VITALS: BP 131/101
--- NOTE | 2023-06-19 18:23 | ED Physician Documentation ---
PD HPI CHEST PAIN - Stated complaint Stated Complaint: MED REACTION/ABD PAIN - Chief complaint Chief Complaint: Abd Pain - Additional information Additional information: 52-year-old gentleman comes into the emergency department for what he describes as chest pain. Patient is on antibiotics for diverticulitis. He said that he had an allergic reaction to initial antibiotics that were prescribed and so it was switched to Augmentin. He said that he has been noticing some midepigastric pain after each time he consumes Augmentin and each day it gets worse and worse after each antibiotic dose. He went to urgent care for further evaluation of this they sent him here for concerns of EKG abnormalities. Pain is not reproducible and he says that over time it does go away but immediately starts to come back after he takes Augmentin. PD PAST MEDICAL HISTORY - Past Medical History Cardiovascular: High cholesterol Respiratory: Sleep apnea Neuro: None Endocrine/Autoimmune: None GI: Other : None Psych: None Musculoskeletal: None, Other Derm: None - Past Surgical History Past Surgical History: Yes General: Colonoscopy, Other - Present Medications Home Medications: Ambulatory Orders Medication Instructions Recorded Confirmed Amox/Clav 875/125 [Augmentin] 1 each PO Q12H #20 tablet 06/10/23 06/19/23 Rosuvastatin Calcium [Crestor] 10 mg PO DAILY 06/10/23 06/19/23 predniSONE [Deltasone] 60 mg PO DAILY 3 Days #9 tablet 06/10/23 06/19/23 Cyclobenzaprine [Flexeril] 10 mg PO TID PRN 06/19/23 06/19/23 - Allergies Allergies/Adverse Reactions: Allergies Allergy/AdvReac Type Severity Reaction Status Date / Time levofloxacin [From Levaquin] Allergy Hives Verified 06/19/23 16:15 metronidazole [From Flagyl] Allergy Hives Verified 06/19/23 16:15 - Social History Does the pt smoke?: No Smoking Status: Never smoker Does the pt drink ETOH?: No Does the pt have substance abuse?: No - Immunizations Immunizations are current?: Yes - POLST Patient has POLST: No PD ED PE NORMAL - Vitals Vital signs reviewed: Yes - General General: Alert and oriented X 3, No acute distress, Well developed/nourished - HEENT HEENT: Atraumatic, PERRL - Neck Neck: Supple, no meningeal sign - Cardiac Cardiac: RRR, No gallop - Respiratory Respiratory: No respiratory distress, Clear bilaterally - Abdomen Abdomen: Normal bowel sounds, Soft, Non tender, Non distended, No organomegaly - Back Back: No CVA TTP - Derm Derm: Normal color, Warm and dry, No rash - Extremities Extremities: No edema - Neuro Neuro: Alert and oriented X 3, 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 Relevant findings are: Rate: Rate (enter#) (69) Rhythm: NSR Athena: Normal Intervals: Normal MD QRS: Normal Ischemia: ST elevation c/w repol Computer interpretation: Agree with computer - Labs Labs: Laboratory Tests 06/19/23 06/19/23 17:10 17:10 WBC 7.9 RBC 5.04 Hgb 14.3 Hct 44.0 MCV 87.3 MCH 28.4 MCHC 32.5 RDW 12.7 Plt Count 243 MPV 8.8 Neut # (Auto) 4.9 Lymph # (Auto) 2.3 [place] # (Auto) 0.5 Eos # (Auto) 0.3 Baso # (Auto) 0.0 Absolute Nucleated RBC 0.00 Nucleated RBC % 0.0 Sodium 139 Potassium 3.6 Chloride 107 Carbon Dioxide 24 Anion Gap 8.0 BUN 19 Creatinine 0.9 Estimated GFR (MDRD) 88 L Glucose 95 Calcium 9.3 Magnesium 2.0 Total Bilirubin 0.5 AST 23 ALT 47 Alkaline Phosphatase 67 Troponin I High Sens 3.8 Total Protein 6.7 Albumin 4.6 Globulin 2.1 Albumin/Globulin Ratio 2.2 Lipase 39 - Rads (name of study) Chest x-ray Relevant Findings:: Final report received, EMP independent interpretation of test, Other (No acute cardiopulmonary abnormalities) PD Medical Decision Making - ED course ED course: Exam without evidence of volume overload so doubt heart failure. EKG without signs of active ischemia. Given the timing of pain to ER presentation, single troponin Negative so doubt NSTEMI. Presentation not consistent with acute PE (Wells low risk Low),pneumothorax (not visualized on chest xr), thoracic aortic dissection, pericarditis, tamponade, pneumonia (no infectious symptoms, clear chest xr), myocarditis (no recent illness, neg trop). HEART score:1 so plan to discharge patient home with PCP Follow-up. Patient's diverticulitis symptoms have fully resolved so he was informed to no longer take the antibiotics to see if the chest pain/midepigastric pain return. I believe that the pain he is experiencing is due to gastritis or acid reflux. He was given a GI cocktail here and his midepigastric pain had fully resolved. He was given strict ER return precautions all questions answered safe for discharge Departure - Departure Disposition: 01 Home, Self Care Clinical Impression: Chest pain due to GERD Instructions: GERD, ED Diverticulosis Comments: Thank you for trusting us with your care, we have evaluated you for your chest pain. I believe that the chest pain you are experiencing was due to the antibiotics that you are taking. We have that you are experiencing GI upset causing acid reflux. We gave you a GI cocktail here in the emergency department to help with this pain and it seems to have significantly improved if not fully resolved it. Please follow-up with your primary care provider noted at today's ER visit. Stop taking the antibiotics for your diverticulitis as I believe that you have now fully recovered from it. You can take a medication called Maalox which is [id number] to help with your heartburn in the future. Please come back to the ER if you are noticing your chest pain is coming back even after taking the antibiotics and you are not feeling any better. Forms: PCP List Discharge Date/Time: 06/19/23 18:33
== END 2023-06-19 18:33 | disposition home or self-care (01) ==
LOC: ED 16:06
DX: K21.9 Gastro-esophageal reflux disease without esophagitis (principal); R07.9 Chest pain, unspecified
CPT/HCPCS: 36415; 71046; 80053; 83690; 83735; 84484; 85025; 93005; 99284; A9270

== ENCOUNTER 2023-11-15 13:34 | Emergency (ER) | payer OTHER ==
--- NOTE | 2023-11-15 14:00 | ED Physician Documentation ---
History of Present Illness - Stated complaint Stated Complaint: PERSISTENT PX LT LWR BK - Chief complaint Chief Complaint: Abd Pain - Additonal information Additional information: You were seen in her room at 53-year-old male with history of diverticulitis presents emergency department for left lower quadrant abdominal pain and tenderness. Is in between his left lateral ribs and left hip area it is tender to the touch she has had no fevers or chills no nausea or vomiting no diarrhea if anything he says that he is feeling like he is on the constipated side this has been ongoing now for about 2 weeks he says it feels kind of similar to last time he had diverticulitis but not entirely. Pain comes and go in waves. Nothing makes it better nothing makes it worse. PD PAST MEDICAL HISTORY - Past Medical History Cardiovascular: High cholesterol Respiratory: Sleep apnea Neuro: None Endocrine/Autoimmune: None GI: Other : None Psych: None Musculoskeletal: None, Other Derm: None - Past Surgical History Past Surgical History: Yes General: Colonoscopy, Other - Present Medications Home Medications: Ambulatory Orders Medication Instructions Recorded Confirmed Amox/Clav 875/125 [Augmentin] 1 each PO Q12H #20 tablet 06/10/23 06/19/23 Rosuvastatin Calcium [Crestor] 10 mg PO DAILY 06/10/23 06/19/23 predniSONE [Deltasone] 60 mg PO DAILY 3 Days #9 tablet 06/10/23 06/19/23 Cyclobenzaprine [Flexeril] 10 mg PO TID PRN 06/19/23 06/19/23 - Allergies Allergies/Adverse Reactions: Allergies Allergy/AdvReac Type Severity Reaction Status Date / Time levofloxacin [From Levaquin] Allergy Hives Verified 11/15/23 13:45 metronidazole [From Flagyl] Allergy Hives Verified 11/15/23 13:45 - Social History Does the pt smoke?: No Smoking Status: Never smoker Does the pt drink ETOH?: No Does the pt have substance abuse?: No - Immunizations Immunizations are current?: Yes - POLST Patient has POLST: No PD ED PE NORMAL - Vitals Vital signs reviewed: Yes - General General: Alert and oriented X 3, No acute distress, Well developed/nourished - Cardiac Cardiac: RRR - Respiratory Respiratory: No respiratory distress, Clear bilaterally - Abdomen Abdomen: Normal bowel sounds, Soft, Non tender, Non distended, No organomegaly - Back Back: No CVA TTP, No spinal TTP, Other (Left lateral thoracic tenderness. no CVA tenderness) - Derm Derm: Normal color, Warm and dry, No rash Results - Vitals Vitals: Vital Signs - 24 hr 11/15/23 11/15/23 11/15/23 13:42 15:47 17:00 Temperature 36.7 C Heart Rate 83 83 72 Respiratory 17 18 18 Rate Blood Pressure 164/100 H 129/93 H 125/93 H O2 Saturation 98 100 100 11/15/23 17:26 Temperature 37 C Heart Rate 82 Respiratory 20 Rate Blood Pressure 125/99 H O2 Saturation 97 Oxygen O2 Source Room air - Labs Labs: Laboratory Tests 11/15/23 11/15/23 11/15/23 14:11 14:29 14:29 WBC 5.5 RBC 5.04 Hgb 14.3 Hct 43.6 MCV 86.5 MCH 28.4 MCHC 32.8 RDW 12.8 Plt Count 235 MPV 9.2 Neut # (Auto) 2.9 Lymph # (Auto) 2.0 [place] # (Auto) 0.4 Eos # (Auto) 0.2 Baso # (Auto) 0.0 Absolute Nucleated RBC 0.00 Nucleated RBC % 0.0 Sodium 138 Potassium 3.7 Chloride 104 Carbon Dioxide 26 Anion Gap 8.0 BUN 16 Creatinine 1.0 Estimated GFR (MDRD) 78 L Glucose 93 Calcium 9.4 Magnesium 1.9 Total Bilirubin 0.9 AST 22 ALT 49 Alkaline Phosphatase 74 Total Protein 7.2 Albumin 4.6 Globulin 2.6 Albumin/Globulin Ratio 1.8 Lipase 33 Urine Color YELLOW Urine Clarity CLEAR Urine pH 6.0 Ur Specific [place] 1.020 Urine Protein NEGATIVE Urine Glucose (UA) NEGATIVE Urine Ketones NEGATIVE Urine Occult Blood NEGATIVE Urine Nitrite NEGATIVE Urine Bilirubin NEGATIVE Urine Urobilinogen 0.2 (NORMAL) Ur Leukocyte Esterase NEGATIVE Ur Microscopic Review NOT INDICATED Urine Culture Comments NOT INDICATED - Rads (name of study) CT abdomen pelvis with contrast Relevant Findings:: Final report received, EMP independent interpretation of test, Other (No acute pathology in the abdomen pelvis, scattered colonic diverticuli without diverticulitis, normal appendix, diffuse hypoattenuation of the liver suggestive of possible steatosis) PD Medical Decision Making - ED course ED course: 53-year-old male presents emerged from for left thoracic pain tenderness differentials include but not limited to, musculoskeletal pain, pyelonephritis, atypical diverticulitis, renal calculi. Labs are complete for further evaluation and really no acute abnormalities or findings urinalysis is also unremarkable making me less suspicious for pyelonephritis or renal calculi. CT abdomen pelvis was complete for further evaluation given his history of diverticulitis and no acute pathology of the abdomen pelvis is visualized. Patient received 1 dose of IV Toradol here in the emergency department and received almost immediate and complete alleviation of pain. I believe this is musculoskeletal and he is told to follow-up with primary care provider for possible physical therapy referral. ER return precautions given all questions answered patient is safe for discharge at this time. Departure - Departure Disposition: Home, Self Care Clinical Impression: Lumbar muscle pain Instructions: ED Exercises Lumbar Muscles, ED Spasm Back No Trauma Comments: Thank you for trusting us with your care. We have completed a CT scan as well as labs for further evaluation of your left lower quadrant pain and we are not seeing any acute abnormalities at this point in time. I do believe that this is musculoskeletal especially because you had significant improvement of symptoms after the IV Toradol. You can take 500 mg of naproxen also known as Aleve every 12 hours and 1000 mg of Tylenol every 8 hours I want you to do this consistently for the next 2 to 3 days to see if you have improvement of symptoms. Please follow-up with your primary care provider for further evaluation to see if you may benefit from physical therapy outpatient. If you have any worsening symptoms or if you start to develop fevers or chills please come back to the emergency department for further evaluation. I have copied and pasted the radiology read from your CT scan below it does appear that you may have something called steatosis also known as fatty liver disease this is something I want you to bring up to your primary care provider with your next appointment. PT NAME: CHAR GONZALEZ MR#: [id number] REG ER/ED AGE: 53 CI DT/TM: 11/15/2304/08/1408 PCP: Yudelka Mcclendon PA-C : 1970 ATT: SEX: M ORD: Cecy Andrade [employer] EXAM: CT/ABPEW ([id number]) PROCEDURE: Abdomen/Pelvis W INDICATIONS: LLQ pain CONTRAST: omni, 100 TECHNIQUE: After the administration of intravenous contrast, a CT scan of the abdomen and pelvis was performed. Images were recorded and evaluated at appropriate window settings. Reformats: coronal and sagittal. For radiation dose reduction, the following was used: automated exposure control, adjustment of mA and/or kV according to patient size. COMPARISON: CT abdomen and pelvis on June 10, 2023.. FINDINGS: Image quality: Diagnostic. Lower chest: No hiatal hernia. Heart base is unremarkable. No basilar effusion or consolidation. Liver: No solid mass. Diffuse hypoattenuation of the liver. Gallbladder: No radiopaque stones or wall thickening. Biliary tree: No intrahepatic or extrahepatic dilation, accounting for age. Spleen: No splenomegaly. Pancreas: No pancreatic ductal dilation. Adrenals: No adrenal nodule. Kidneys and ureters: Symmetric enhancement with no nephrolithiasis. No hydronephrosis. Subcentimeter cortical hypodensity in the left interpolar region is too small to characterize, statistically a cyst. No renal cystic lesion which requires follow up. No solid mass. Stomach, bowel and peritoneum: Stomach is decompressed, limiting evaluation, but appears grossly normal. Small and large bowel is normal in caliber, without obstruction. Normal appendix (2/88). A few scattered colonic diverticuli, without diverticulitis. Colonic stool burden is within normal limits. Lymph nodes: No central or retroperitoneal adenopathy. Vessels: No infrarenal aortic aneurysm. Patent portal vein. PELVIS Reproductive organs: Unremarkable. Bladder: No abnormal wall thickening, accounting for underdistention. Pelvic lymph nodes: No pelvic adenopathy by size criteria. Bones: No aggressive osseous abnormality. No acute fractures. Mild multilevel degenerative changes of the spine. Other: No significant ventral or inguinal hernia. IMPRESSION: 1.No acute pathology in the abdomen or pelvis. Scattered colonic diverticuli, without diverticulitis. Normal appendix. 2.Diffuse hypoattenuation of the liver suggestive of steatosis. Reviewed by: Radha Camarena MD on 11/15/2023 4:15 PM AKJAYMIE Approved by: Radha Camarena MD on 11/15/2023 4:15 PM AKJAYMIE Station ID: [id number] Forms: PCP List Discharge Date/Time: 11/15/23 17:35
[2023-11-15] MEDS: KETOROLAC 15 MG/ML VIAL IVP STA (14:27)
[2023-11-15 14:37] LABS: BASOPHILS % (AUTO) 0.5 %; EOSINOPHILS # (AUTO) 0.2 10^3/uL (0.0-0.7); EOSINOPHILS % (AUTO) 3.6 %; HCT - HEMATOCRIT 43.6 % (42.0-52.0); HGB - HEMOGLOBIN 14.3 g/dL (14.0-18.0); LYMPHOCYTES % (AUTO) 35.8 %; MEAN CORPUSCULAR HEMOGLOBIN 28.4 pg (27.0-31.0); MEAN CORPUSCULAR HGB CONC 32.8 g/dL (32.0-36.0); MEAN CORPUSCULAR VOLUME 86.5 fL (80.0-94.0); MEAN PLATELET VOLUME 9.2 fL (7.4-11.4); MONOCYTES # (AUTO) 0.4 10^3/uL (0.0-1.0); MONOCYTES % (AUTO) 6.6 %; NEUTROPHILS # (AUTO) 2.9 10^3/uL (1.5-6.6); NEUTROPHILS % (AUTO) 53.3 %; PLT - PLATELET COUNT 235 10^3/uL (130-450); RED BLOOD COUNT 5.04 10^6/uL (4.70-6.10); RED CELL DISTRIBUTION WIDTH 12.8 % (12.0-15.0); WHITE BLOOD COUNT 5.5 x10^3/uL (4.8-10.8)
[2023-11-15 14:38] LABS: BILIRUBIN,URINE NEGATIVE (NEGATIVE); GLUCOSE, URINE (UA) NEGATIVE (NEGATIVE); KETONES,URINE (UA) NEGATIVE (NEGATIVE); LEUKOCYTE ESTERASE, URINE NEGATIVE (NEGATIVE); NITRITE,URINE NEGATIVE (NEGATIVE); OCCULT BLOOD,URINE NEGATIVE (NEGATIVE); PROTEIN,URINE NEGATIVE (NEGATIVE); UROBILINOGEN,URINE 0.2 (NORMAL) E.U./dL (NORMAL)
[2023-11-15 14:39] LABS: CLARITY,URINE CLEAR (CLEAR)
[2023-11-15 14:52] LABS: ALBUMIN 4.6 g/dL (3.2-5.5); ALBUMIN/GLOBULIN RATIO 1.8 (1.0-2.2); BILIRUBIN,TOTAL 0.9 mg/dL (0.2-1.0); CALCIUM 9.4 mg/dL (8.5-10.3); MAGNESIUM 1.9 mg/dL (1.7-2.3); POTASSIUM 3.7 mmol/L (3.5-4.5); TOTAL PROTEIN 7.2 g/dL (6.4-8.9)
[2023-11-15] MEDS ORDERED: iohexoL-300 100 ML VIAL ONE (15:10)
--- NOTE | 2023-11-15 17:16 | CT Report ---
PROCEDURE: Abdomen/Pelvis W INDICATIONS: LLQ pain CONTRAST: omni, 100 TECHNIQUE: After the administration of intravenous contrast, a CT scan of the abdomen and pelvis was performed. Images were recorded and evaluated at appropriate window settings. Reformats: coronal and sagittal. F or radiation dose reduction, the following was used: automated exposure control, adjustment of mA and /or kV according to patient size. COMPARISON: CT abdomen and pelvis on June 10, 2023.. FINDINGS: Image quality: Diagnostic. Lower chest: No hiatal hernia. Heart base is unremarkable. No basilar effusion or consolidation. Liver: No solid mass. Diffuse hypoattenuation of the liver. Gallbladder: No radiopaque stones or wall thickening. Biliary tree: No intrahepatic or extrahepatic dilation, accounting for age. Spleen: No splenomegaly. Pancreas: No pancreatic ductal dilation. Adrenals: No adrenal nodule. Kidneys and ureters: Symmetric enhancement with no nephrolithiasis. No hydronephrosis. Subcentimeter cortical hypodensity in the left interpolar region is too small to characterize, statistically a cyst . No renal cystic lesion which requires follow up. No solid mass. Stomach, bowel and peritoneum: Stomach is decompressed, limiting evaluation, but appears grossly norm al. Small and large bowel is normal in caliber, without obstruction. Normal appendix (2/). A few sc attered colonic diverticuli, without diverticulitis. Colonic stool burden is within normal limits. Lymph nodes: No central or retroperitoneal adenopathy. Vessels: No infrarenal aortic aneurysm. Patent portal vein. PELVIS Reproductive organs: Unremarkable. Bladder: No abnormal wall thickening, accounting for underdistention. Pelvic lymph nodes: No pelvic adenopathy by size criteria. Bones: No aggressive osseous abnormality. No acute fractures. Mild multilevel degenerative changes of the spine. Other: No significant ventral or inguinal hernia. IMPRESSION: 1.No acute pathology in the abdomen or pelvis. Scattered colonic diverticuli, without diverticulitis. Normal appendix. 2.Diffuse hypoattenuation of the liver suggestive of steatosis. Reviewed by: Radha Camarena MD on 11/15/2023 4:15 PM RUI Approved by: Radha Camarena MD on 11/15/2023 4:15 PM RUI Station ID: [id number]
[2023-11-15 17:30] VITALS: BP 125/99; O2SAT 97
[2023-11-15] MEDS: iohexoL-300 100 ML VIAL IVP ONE (18:18)
== END 2023-11-15 17:35 | disposition home or self-care (01) ==
LOC: ED 13:34
DX: M54.50 Low back pain, unspecified (principal)
CPT/HCPCS: 36415; 74177; 80053; 81003; 83690; 83735; 85025; 96374; 99283; 99284; Q9967; 81001; 87086

== ENCOUNTER 2023-11-30 06:53 | Outpatient (CLI) | payer OTHER ==
[2023-11-30 07:15] LABS: BASOPHILS % (AUTO) 0.5 %; EOSINOPHILS # (AUTO) 0.2 10^3/uL (0.0-0.7); EOSINOPHILS % (AUTO) 3.4 %; HCT - HEMATOCRIT 44.8 % (42.0-52.0); HGB - HEMOGLOBIN 14.5 g/dL (14.0-18.0); LYMPHOCYTES # (AUTO) 2.1 10^3/uL (1.5-3.5); LYMPHOCYTES % (AUTO) 37.1 %; MEAN CORPUSCULAR HEMOGLOBIN 28.4 pg (27.0-31.0); MEAN CORPUSCULAR HGB CONC 32.4 g/dL (32.0-36.0); MEAN CORPUSCULAR VOLUME 87.7 fL (80.0-94.0); MEAN PLATELET VOLUME 9.2 fL (7.4-11.4); MONOCYTES # (AUTO) 0.4 10^3/uL (0.0-1.0); MONOCYTES % (AUTO) 6.6 %; NEUTROPHILS % (AUTO) 52.2 %; PLT - PLATELET COUNT 227 10^3/uL (130-450); RED BLOOD COUNT 5.11 10^6/uL (4.70-6.10); RED CELL DISTRIBUTION WIDTH 12.9 % (12.0-15.0); WHITE BLOOD COUNT 5.6 x10^3/uL (4.8-10.8)
[2023-11-30 07:31] LABS: ALBUMIN 4.7 g/dL (3.2-5.5); ALKALINE PHOSPHATASE 70 IU/L (42-121); ALT ALANINE AMINOTRANSFERASE 41 IU/L (10-60); AST ASPARTATE AMINOTRANSFERASE 22 IU/L (10-42); BUN - BLOOD UREA NITROGEN 18 mg/dL (6-20); CALCIUM 9.6 mg/dL (8.5-10.3); CARBON DIOXIDE - CO2 28 mmol/L (21-32); CHLORIDE 107 mmol/L (101-111); CHOL/HDL RATIO 2.4 (<5.0); CHOLESTEROL 121 mg/dL; GFR - MDRD 78 (>89); GLUCOSE 100 mg/dL (74-104); HDL CHOLESTEROL 51 mg/dL; LDL CHOLESTEROL,CALCULATED 33 mg/dL; LDL/HDL RATIO 0.6 (<3.6); POTASSIUM 4.1 mmol/L (3.5-4.5); SODIUM 140 mmol/L (135-145); TOTAL PROTEIN 7.1 g/dL (6.4-8.9); TRIGLYCERIDES 186 mg/dL; URIC ACID 7.6 mg/dL (4.4-7.6); VLDL CHOLESTEROL 37 mg/dL
[2023-11-30 07:42] LABS: THYROID STIMULATING HORMONE 0.64 uIU/mL (0.34-5.60)
[2023-11-30 10:13] LABS: ESTIMATED AVERAGE GLUCOSE 114 mg/dL (70-100); HEMOGLOBIN A1c% 5.6 % (4.27-6.07)
== END 2023-11-30 06:54 | disposition home or self-care (01) ==
LOC: LAB 06:53
PROVIDERS: ATTEND Physician Assistant Medical
DX: Z00.00 Encounter for general adult medical examination without abnormal findings (principal); E78.5 Hyperlipidemia, unspecified; R73.9 Hyperglycemia, unspecified; Z12.5 Encounter for screening for malignant neoplasm of prostate; M10.9 Gout, unspecified
CPT/HCPCS: 36415; 80053; 80061; 83036; 83721; 84153; 84443; 84550; 85025